=== PATIENT | male | born 1940 | race Two or more races ===

== ENCOUNTER 2017-01-27 12:22 | Inpatient (IN) | payer MEDICARE, MEDICAID ==
[~2017-01-27] VITALS: Ht 165.1 cm; Wt 66.2 kg
[2017-01-27] MEDS ORDERED: ALBUTEROL FS 2.5 MG/3 ML VIAL.NEB ONE ×2 (12:24→12:53)
[2017-01-27] MEDS ORDERED: IPRATROPIUM NEB FS 0.5 MG/2.5 ML AMPUL.NEB ONE (12:24)
[2017-01-27] MEDS ORDERED: methylPREDNISolone SOD SUCC 125 MG/2ML VIAL ONE (12:30)
[2017-01-27] MEDS ORDERED: IPRATROPIUM NEB FS 0.5 MG/2.5 ML AMPUL.NEB NEB ONE (12:30)
[2017-01-27] MEDS ORDERED: ALBUTEROL FS 2.5 MG/3 ML VIAL.NEB NEB ONE (12:30)
[2017-01-27] MEDS ORDERED: methylPREDNISolone SOD SUCC 125 MG/2ML VIAL IV ONE (12:30)
[2017-01-27 12:36] LABS: BASOPHILS % (AUTO) 0.3 % (0.0-2.0); DIFF TOTAL % 100 %; EOSINOPHILS # (AUTO) 0.4 /CMM (0.0-0.7); EOSINOPHILS % (AUTO) 8.2 % (0.0-6.0); HEMATOCRIT 35 % (39-51); HEMOGLOBIN 12.3 g/dL (13.5-17.5); LYMPHOCYTES # (AUTO) 1.3 /CMM (0.8-4.8); LYMPHOCYTES % (AUTO) 24.4 % (20.0-44.0); MEAN CORPUSCULAR HEMOGLOBIN 33 PG (26.0-33.0); MEAN CORPUSCULAR HGB CONC 35 g/dl (31.0-36.0); MEAN CORPUSCULAR VOLUME 96 fL (80-96); MONOCYTES # (AUTO) 0.6 /CMM (0.1-1.30); MONOCYTES % (AUTO) 11.7 % (2.0-12.0); NEUTROPHILS # (AUTO) 3.1 /CMM (1.8-8.9); NEUTROPHILS % (AUTO) 55.4 % (43.0-81.0); PLATELET COUNT (AUTO) 170 /CMM (150-450); RED BLOOD CELL COUNT(AUTO) 3.69 MIL/uL (4.5-6.0); WHITE BLOOD COUNT (AUTO) 5.4 K/uL (4.3-11.0)
[2017-01-27 12:43] LABS: CALCIUM, SERUM 8.4 mg/dL (8.5-10.1); CREATININE 1.1 mg/dL (0.6-1.3); POTASSIUM 4.4 mmol/L (3.5-5.1)
[2017-01-27 12:50] LABS: TROPONIN I 0.035 ng/mL (0.00-0.056)
[2017-01-27] MEDS ORDERED: AMLO5TAB4 PO (12:54)
[2017-01-27] MEDS ORDERED: RANO500T3 PO (12:54)
[2017-01-27] MEDS ORDERED: SITA1TAB6 PO ×2 (12:54→14:18)
[2017-01-27] MEDS ORDERED: ATOR40TA PO (12:54)
[2017-01-27] MEDS ORDERED: ALBU18HF2 IH (12:54)
[2017-01-27] MEDS ORDERED: CLOP75TA2 PO (12:54)
[2017-01-27] MEDS ORDERED: MEMA7CAP PO (12:54)
[2017-01-27] MEDS ORDERED: NEBI5TAB8 PO (12:54)
[2017-01-27] MEDS ORDERED: TAMS-12 PO (12:54)
[2017-01-27] MEDS ORDERED: ALBUTEROL FS 2.5 MG/3 ML VIAL.NEB CONTNEB ONE (13:00)
[2017-01-27] MEDS ORDERED: OSELTAMIVIR PHOSPHATE 75 MG CAPSULE PO SCH (14:00)
[2017-01-27] MEDS ORDERED: CEFTRIAXONE 1GM BAG (ER ONLY) 1 GM/50 ML PIGGYBACK IV ONE (14:00)
[2017-01-27] MEDS ORDERED: OSELTAMIVIR PHOSPHATE 75 MG CAPSULE ONE (14:04)
[2017-01-27] MEDS ORDERED: CEFTRIAXONE 1GM BAG (ER ONLY) 50 ML IV ONE (14:04)
[2017-01-27] MEDS ORDERED: IV SET PRIMARY PUMP SET 1 EA INFUS.SET MC ONE ×2 (14:05→18:37)
[2017-01-27] MEDS ORDERED: METR-105 PO (14:18)
[2017-01-27] MEDS ORDERED: ESOM40CA PO (14:18)
[2017-01-27] MEDS ORDERED: AMOX500C2 PO (14:18)
[2017-01-27 14:50] LABS: EOSINOPHILS % (MANUAL) 9 % (0-4); LYMPHOCYTES % (MANUAL) 26 % (16-48)
[2017-01-27 14:52] LABS: PLATELET ESTIMATE ADEQUATE
[2017-01-27 16:00] VITALS: BP 113/66
[2017-01-27 17:22] VITALS: BP 142/75
[2017-01-27] MEDS ORDERED: CEFTRIAXONE 1 G in IV D5W 50 ML IV SCH (18:00)
[2017-01-27] MEDS ORDERED: ONDANSETRON HCL/PF 4 MG/2 ML VIAL IVP PRN (18:30)
[2017-01-27] MEDS ORDERED: ZOLPIDEM TARTRATE 5 MG TABLET PO PRN (18:30)
[2017-01-27] MEDS ORDERED: Z GUARD REMEDY 2 OZ OINT TP PRN (18:30)
[2017-01-27] MEDS ORDERED: HYDROCODONE/APAP 5/325MG 1 EACH TABLET PO PRN (18:30)
[2017-01-27] MEDS ORDERED: MAG HYDROX/AL HYDROX/SIMETH 30 ML UDC PO PRN (18:30)
[2017-01-27] MEDS ORDERED: ACETAMINOPHEN 325 MG TABLET PO PRN (18:30)
[2017-01-27] MEDS ORDERED: MAGNESIUM HYDROXIDE 30 ML UDC PO PRN (18:30)
[2017-01-27] MEDS ORDERED: AZITHROMYCIN 250 MG TABLET PO ONE (19:00)
[2017-01-27] MEDS: ALBUTEROL FS 2.5 MG/3 ML VIAL.NEB NEB SCH ×2 (19:28→23:31)
[2017-01-27] MEDS: IPRATROPIUM NEB FS 0.5 MG/2.5 ML AMPUL.NEB NEB SCH ×2 (19:28→23:31)
[2017-01-27 20:00] VITALS: BP 119/70
[2017-01-27 22:00] VITALS: BP 119/70
[2017-01-27] MEDS ORDERED: methylPREDNISolone SOD SUCC 125 MG/2ML VIAL IV SCH (22:00)
[2017-01-28] VITALS (9 sets, daily range): BP systolic 108–122; BP diastolic 61–69
[2017-01-28] MEDS: ALBUTEROL FS 2.5 MG/3 ML VIAL.NEB NEB SCH ×6 (02:49→23:13)
[2017-01-28] MEDS: IPRATROPIUM NEB FS 0.5 MG/2.5 ML AMPUL.NEB NEB SCH ×6 (02:49→23:13)
[2017-01-28 07:29] LABS: BASOPHILS % (AUTO) 0.1 % (0.0-2.0); DIFF TOTAL % 100 %; HEMATOCRIT 33 % (39-51); HEMOGLOBIN 11.3 g/dL (13.5-17.5); LYMPHOCYTES # (AUTO) 0.7 /CMM (0.8-4.8); LYMPHOCYTES % (AUTO) 8.9 % (20.0-44.0); MEAN CORPUSCULAR HEMOGLOBIN 33 PG (26.0-33.0); MEAN CORPUSCULAR HGB CONC 34 g/dl (31.0-36.0); MEAN CORPUSCULAR VOLUME 95 fL (80-96); MONOCYTES # (AUTO) 0.2 /CMM (0.1-1.30); MONOCYTES % (AUTO) 2.8 % (2.0-12.0); NEUTROPHILS # (AUTO) 6.7 /CMM (1.8-8.9); NEUTROPHILS % (AUTO) 88.2 % (43.0-81.0); PLATELET COUNT (AUTO) 182 /CMM (150-450); RED BLOOD CELL COUNT(AUTO) 3.47 MIL/uL (4.5-6.0); WHITE BLOOD COUNT (AUTO) 7.7 K/uL (4.3-11.0)
[2017-01-28 07:40] LABS: CALCIUM, SERUM 8.4 mg/dL (8.5-10.1); CREATININE 1.2 mg/dL (0.6-1.3); PHOSPHORUS 4.2 mg/dL (2.5-4.9); POTASSIUM 4.5 mmol/L (3.5-5.1)
[2017-01-28] MEDS ORDERED: Medication Not On Formulary EA (Sitagliptin Phos/Metformin Hcl (Janumet 50-1,000 Mg Tabl PO SCH ×2 (09:00→18:00)
[2017-01-28] MEDS ORDERED: Medication Not On Formulary EA (Memantine HCl (Namenda Xr) 7 MG) PO SCH (09:00)
[2017-01-28] MEDS ORDERED: Medication Not On Formulary EA (Esomeprazole Mag Trihydrate (Nexium) 40 MG) PO SCH (09:00)
[2017-01-28] MEDS: methylPREDNISolone SOD SUCC 125 MG/2ML VIAL IV SCH (09:27)
[2017-01-28] MEDS: PANTOPRAZOLE 40 MG TABLET.DR PO SCH (09:27)
[2017-01-28] MEDS: METFORMIN 500 MG TABLET PO SCH (09:28)
[2017-01-28] MEDS: SITAGLIPTIN PHOSPHATE 50 MG TABLET PO SCH (09:28)
[2017-01-28] MEDS: ATORVASTATIN 40 MG TABLET PO SCH (09:28)
[2017-01-28] MEDS: MEMANTINE HCL 5 MG TABLET PO SCH (09:28)
[2017-01-28] MEDS: CLOPIDOGREL BISULFATE 75 MG TABLET PO SCH (09:29)
[2017-01-28] MEDS: TAMSULOSIN 0.4 MG CAP.SR.24H PO SCH (09:29)
[2017-01-28] MEDS: AMLODIPINE BESYLATE 5 MG TABLET PO SCH (09:29)
[2017-01-28] MEDS ORDERED: SECONDARY IV SET 1 EA INFUS.SET MC ONE (10:44)
[2017-01-28] MEDS ORDERED: IV SET PRIMARY PUMP SET 1 EA INFUS.SET MC ONE (10:44)
[2017-01-28] MEDS: Magnesium 1GM/D5W 100ML PREMIX 100 ML IV SCH ×2 (10:49→11:53)
[2017-01-28] MEDS ORDERED: INSULIN REGULAR, HUMAN 100 UNIT/ML 3 ML VIAL SQ PRN (11:30)
[2017-01-28] MEDS ORDERED: DEXTROSE 50%-WATER 50 ML DISP.SYRIN IV PRN (11:30)
[2017-01-28] MEDS ORDERED: *INSULIN REGULAR(HUMULIN R)HUM 100 UNIT/ML VIAL SQ PRN (11:30)
[2017-01-28] MEDS: BLOOD SUGAR DIAGNOSTIC 1 EACH STRIP VI SCH ×3 (11:53→23:12)
[2017-01-28] MEDS ORDERED: METFORMIN 500 MG TABLET PO SCH (18:00)
[2017-01-28] MEDS: AZITHROMYCIN 250 MG TABLET PO SCH (18:09)
[2017-01-28] MEDS ORDERED: SITAGLIPTIN PHOSPHATE 50 MG TABLET PO SCH (18:44)
[2017-01-29] MEDS: ALBUTEROL FS 2.5 MG/3 ML VIAL.NEB NEB SCH ×3 (03:02→10:58)
[2017-01-29] MEDS: IPRATROPIUM NEB FS 0.5 MG/2.5 ML AMPUL.NEB NEB SCH ×3 (03:02→10:58)
[2017-01-29] MEDS: BLOOD SUGAR DIAGNOSTIC 1 EACH STRIP VI SCH ×2 (07:08→12:00)
[2017-01-29 07:43] LABS: CALCIUM, SERUM 8.9 mg/dL (8.5-10.1); CREATININE 1.2 mg/dL (0.6-1.3); POTASSIUM 4.9 mmol/L (3.5-5.1)
[2017-01-29 08:00] VITALS: BP 103/61
[2017-01-29] MEDS: methylPREDNISolone SOD SUCC 125 MG/2ML VIAL IV SCH (08:08)
[2017-01-29] MEDS: METFORMIN 500 MG TABLET PO SCH (08:08)
[2017-01-29] MEDS: ATORVASTATIN 40 MG TABLET PO SCH (08:09)
[2017-01-29] MEDS: TAMSULOSIN 0.4 MG CAP.SR.24H PO SCH (08:09)
[2017-01-29] MEDS: MEMANTINE HCL 5 MG TABLET PO SCH (08:09)
[2017-01-29] MEDS: SITAGLIPTIN PHOSPHATE 50 MG TABLET PO SCH (08:09)
[2017-01-29] MEDS: PANTOPRAZOLE 40 MG TABLET.DR PO SCH (08:09)
[2017-01-29] MEDS: CLOPIDOGREL BISULFATE 75 MG TABLET PO SCH (08:09)
[2017-01-29 08:10] VITALS: BP 103/61
[2017-01-29] MEDS: AMLODIPINE BESYLATE 5 MG TABLET PO SCH (08:10)
[2017-01-29] MEDS ORDERED: IPRA0.2S49 IH (09:43)
[2017-01-29] MEDS ORDERED: PRED20TA PO (09:43)
[2017-01-29] MEDS ORDERED: ALBU2.5V38 IH (09:43)
[2017-01-29] MEDS ORDERED: AZIT250T PO (09:49)
[2017-01-29] MEDS: AZITHROMYCIN 250 MG TABLET PO SCH (10:30)
== END 2017-01-29 12:05 | disposition home or self-care (01) | DRG 191 ==
LOC: ER 12:25 → TELE 13:11 → EDBD 13:11 → MED 01-28 08:55
PROVIDERS: ADMIT Family Medicine; ATTEND Family Medicine
DX: J44.1 Chronic obstructive pulmonary disease with (acute) exacerbation (principal); I50.32 Chronic diastolic (congestive) heart failure; J44.0 Chronic obstructive pulmonary disease with (acute) lower respiratory infection; I25.10 Atherosclerotic heart disease of native coronary artery without angina pectoris; Z95.1 Presence of aortocoronary bypass graft; F03.90 Unspecified dementia, unspecified severity, without behavioral disturbance, psychotic disturbance, mood disturbance, and anxiety; E78.5 Hyperlipidemia, unspecified; N40.0 Benign prostatic hyperplasia without lower urinary tract symptoms; K21.9 Gastro-esophageal reflux disease without esophagitis; K57.90 Diverticulosis of intestine, part unspecified, without perforation or abscess without bleeding; M19.90 Unspecified osteoarthritis, unspecified site; E11.9 Type 2 diabetes mellitus without complications; F17.210 Nicotine dependence, cigarettes, uncomplicated; L40.9 Psoriasis, unspecified
CPT/HCPCS: 36415; 70220-TC; 71010-TC; 80048-TC; 80061-TC; 82962-TC; 83735-TC; 83880; 84100-TC; 84484-TC; 85025-TC; 87040-TC; 87081-TC; 87400; 94799-TC; A4606; J0696; J1815; J2930; J3475; J7060; Z7610

== ENCOUNTER 2019-03-04 12:14 | Inpatient (IN) | payer MEDICARE, OTHER ==
[~2019-03-04] VITALS: Ht 162.6 cm; Wt 71.2 kg
[~2019-03-04 12:14] MED LIST: ALBU18HF2 IH; ALBU2.5V38 IH; AMLO5TAB4 PO; AMOX500C2 PO; ATOR40TA PO; AZIT250T PO; CLOP75TA15 PO; ESOM40CA PO; IPRA0.2S49 IH; MEMA7CAP PO; METR-147 PO; NEBI5TAB8 PO; PRED20TA PO; RANO500T3 PO; SITA1TAB6 PO; TAMS-12 PO
--- NOTE | 2019-03-04 12:15 | NUR ---
SEEN AND EXAMINED BY DR. SANTOS.
--- NOTE | 2019-03-04 12:18 | NUR ---
RT AT BEDSIDE FOR BREATHING TREAMENT.
--- NOTE | 2019-03-04 12:19 | NUR ---
PT BIBRA88 FROM HOME FOR WORSENING SOB X 3 DAYS, PT IS AAOX3, NOTED RESPIRATORY DISTRESS, V/S STABLE, HOOKED TO MONITOR, KEPT RESTED AND COMFORTABLE. WILL CONTINUE TO MONITOR.
[2019-03-04] MEDS ORDERED: ALBUTEROL FS 2.5 MG/3 ML VIAL.NEB ONE (12:20)
--- NOTE | 2019-03-04 12:20 | NUR ---
LABS DRAWNED AND SENT TO LAB. AWAITING RESULTS.
[2019-03-04] MEDS ORDERED: IPRATROPIUM NEB FS 0.5 MG/2.5 ML AMPUL.NEB ONE (12:21)
[2019-03-04] MEDS ORDERED: CEFTRIAXONE 1GM BAG (ER ONLY) 50 ML IV ONE (12:27)
[2019-03-04] MEDS ORDERED: methylPREDNISolone SOD SUCC 125 MG/2ML VIAL ONE (12:27)
[2019-03-04 12:29] LABS: EOSINOPHILS % (AUTO) 1.4 % (0.0-6.0); HEMATOCRIT 32 % (39-51); HEMOGLOBIN 10.8 g/dL (13.5-17.5); LYMPHOCYTES # (AUTO) 1.3 /CMM (0.8-4.8); MEAN CORPUSCULAR HGB CONC 34 g/dl (31.0-36.0); MEAN CORPUSCULAR VOLUME 100 fL (80-96); MONOCYTES # (AUTO) 0.3 /CMM (0.1-1.30); MONOCYTES % (AUTO) 6.9 % (2.0-12.0); NEUTROPHILS # (AUTO) 3.2 /CMM (1.8-8.9); NEUTROPHILS % (AUTO) 64.7 % (43.0-81.0); PLATELET COUNT (AUTO) 136 /CMM (150-450); RED BLOOD CELL COUNT(AUTO) 3.16 MIL/uL (4.5-6.0); WHITE BLOOD COUNT (AUTO) 4.9 K/uL (4.3-11.0)
[2019-03-04] MEDS ORDERED: ALBUTEROL FS 2.5 MG/3 ML VIAL.NEB CONTNEB ONE (12:30)
[2019-03-04] MEDS ORDERED: methylPREDNISolone SOD SUCC 125 MG/2ML VIAL IV ONE (12:30)
[2019-03-04] MEDS ORDERED: IPRATROPIUM NEB FS 0.5 MG/2.5 ML AMPUL.NEB NEB ONE ×2 (12:30→13:30)
[2019-03-04] MEDS ORDERED: CEFTRIAXONE 1GM BAG (ER ONLY) 1 GM/50 ML PIGGYBACK IV ONE (12:30)
--- NOTE | 2019-03-04 12:30 | NUR ---
LOOM INSPECTOR AT BEDSIDE FOR XRAY.
[2019-03-04 12:38] LABS: CALCIUM, SERUM 8.5 mg/dL (8.5-10.1); CARBON DIOXIDE 22 mmol/L (21-32); CHLORIDE 105 mmol/L (98-107); CREATININE 1.5 mg/dL (0.6-1.3); GLUCOSE 172 mg/dL (74-106); POTASSIUM 4.4 mmol/L (3.5-5.1); SODIUM SERUM 137 mmol/L (136-145); UREA NITROGEN, BLOOD 30 mg/dL (7-18)
[2019-03-04] MEDS ORDERED: CHOL200059 PO (12:44)
[2019-03-04] MEDS ORDERED: UMEC62.5 IH (12:44)
[2019-03-04] MEDS ORDERED: FLUT1BLS IH (12:44)
[2019-03-04] MEDS ORDERED: SACU1TAB4 PO (12:44)
[2019-03-04] MEDS ORDERED: MEMA14CA PO (12:44)
[2019-03-04] MEDS ORDERED: CYAN1TAB58 PO (12:47)
[2019-03-04 12:49] LABS: ALANINE AMINOTRANSFERASE 31 U/L (12-78); ALBUMIN 3.6 g/dL (3.4-5.0); ALKALINE PHOSPHATASE 65 U/L (46-116); ASPARTATE AMINOTRANSFERASE 16 U/L (15-37); B-TYPE NATRIURETIC PEPTIDE 6411 PG/ML (0-125); BILIRUBIN,DIRECT 0.1 mg/dL (0.0-0.2); BILIRUBIN,TOTAL 0.4 mg/dL (0.2-1.0); TOTAL PROTEIN, SERUM 7.2 g/dL (6.4-8.2)
[2019-03-04] MEDS ORDERED: FUROSEMIDE 20 MG/2 ML VIAL IV ONE (13:00)
[2019-03-04] MEDS ORDERED: FUROSEMIDE 20 MG/2 ML VIAL ONE (13:06)
[2019-03-04] MEDS ORDERED: ZOLPIDEM TARTRATE 5 MG TABLET PO PRN (13:30)
[2019-03-04] MEDS ORDERED: MAGNESIUM HYDROXIDE 30 ML UDC PO PRN (13:30)
[2019-03-04] MEDS ORDERED: HYDROCODONE/APAP 5/325MG 1 EACH TABLET PO PRN (13:30)
[2019-03-04] MEDS ORDERED: ONDANSETRON HCL/PF 4 MG/2 ML VIAL IVP PRN (13:30)
[2019-03-04] MEDS ORDERED: MAG HYDROX/AL HYDROX/SIMETH 30 ML UDC PO PRN (13:30)
[2019-03-04] MEDS ORDERED: Z GUARD REMEDY 2 OZ OINT TP PRN (13:30)
[2019-03-04] MEDS ORDERED: ACETAMINOPHEN 325 MG TABLET PO PRN (13:30)
--- NOTE | 2019-03-04 14:15 | NUR ---
REPORT GIVEN TO SU GARCIA FOR FRED.
--- NOTE | 2019-03-04 15:59 | NUR ---
AUTHOR'S AGENT ADMITTING NOTES ADMITTED A 78 Y/O MALE TO UNIT AT 1445 VIA [facility] [employer]. PT A/O X4, JORDANIAN SPEAKING WITH LITTLE BOTSWANAN. PT IS AMBULATORY WITH DIAGNOSIS OF ACUTE COPD EXACERBATION. PATIENT AND ORIENTED TO UNIT AND ROOM. PT NOTED WITH SOB ON EXERTION AND WAS PLACED ON 02 VIA N/C @ 1-2 LPM WITH RELIEF. PT WITH INTACT SKIN, ABDOMEN SOFT, NON-TENDER AND NON- DISTENDED WITH + BOWEL SOUNDS ON FOUR QUADRANTS. PT PLACED ON TELEMONITORING WITH READING SHOWING SR WITH HR ON THE 80'S, NO C/O CARDIAC DISTRESS VOICED. IV ACCESS G # 20 NOTED TO LAC, INTACT AND PATENT. BED PLACED ON LOW LOCKED POSITION WITH SR UP X2. CALL LIGHT IN REACH. MD REYES AWARE OF ADMISSION. WILL CONTINUE TO MONITOR PT ACCORDINGLY.
[2019-03-04 16:00] VITALS: BP 110/62
[2019-03-04] MEDS ORDERED: ALBUTEROL FS 2.5 MG/0.5 ML VIAL.NEB NEB SCH (17:00)
[2019-03-04] MEDS: IPRATROPIUM NEB FS 0.5 MG/2.5 ML AMPUL.NEB NEB SCH ×3 (17:08→23:39)
--- NOTE | 2019-03-04 18:06 | NUR ---
RN NOTES SPECIMEN COLLECTED TO RIGHT NARE FOR MRSA SURVEILLANCE TEST. SPUTUM SPECIMEN FOR CX OBTAINED. CALLED LABORATORY TO PICK-UP SPECIMENS FROM [facility].
--- NOTE | 2019-03-04 18:49 | NUR ---
CURRICULUM ADVISORY TEACHER CLOSING NOTES PATIENT AWAKE IN BED WITH FAMILY AT BEDSIDE. A/O X4, SAME ABLE TO MAKE NEEDS KNOWN. ON 02 VIA N/C @ 2LPM, TOLERATING WELL WITH NO SOB NOTED. PT IS AMBULATORY. TELEMONITORING SHOWS SR WITH HR ON THE 80'2, PT WITH NO C/O CARDIAC DISTRESS VOICED. IV ACCESS INTACT TO LAC AND PATENT, IV ATB LEVAQUIN 500MG IVPB TO BE STARTED, PHARMACY CALLED AND TO DELIVER MED. ALL NEEDS AND CARE ATTENDED WELL. BED IN LOW LOCKED POSITION WITH SR UP X2. WILL ENDORSE TO HOSPICE TEAM LEAD NURSE FOR FRED
[2019-03-04] MEDS: LEVOFLOXACIN 500 MG /D5W 100ML 500 MG in PREMIX 1 EA IV SCH (19:16)
--- NOTE | 2019-03-04 19:45 | NUR ---
REGIONAL SALES COORDINATOR OPENING NOTES RECEIVED PATIENT IN BED AWAKE, ALERT AND ORIENTED X4, VERBALLY RESPONSIVE, ABLE TO MAKE NEEDS KNOWN. SCOTTISH SPEAKER BUT CAN SPEAK AND UNDERSTAND VERY LITTLE SAMI. BREATHING EVEN AND UNLABORED. NO SOB NOTED. ON 2LPM OXYGEN VIA NC. TOLERATING WELL. IV ON LEFT AC G#20 INTACT AND PATENT. SKIN DRY AND WARM TO TOUCH. AFEBRILE. ALL OTHER NEEDS ATTENDED TO. SAFETY MEASURES IN PLACE. CALL LIGHT WITHIN REACH. WILL CONTINUE TO MONITOR.
[2019-03-04 20:00] VITALS: BP 130/69
[2019-03-04] MEDS: methylPREDNISolone SOD SUCC 40 MG/ML VIAL IV SCH (20:22)
[2019-03-04] MEDS: ALBUTEROL FS 2.5 MG/0.5 ML VIAL.NEB NEB SCH (23:39)
[2019-03-05] VITALS: BP 129/79
--- NOTE | 2019-03-05 02:26 | NUR ---
PROVIDER ENROLLMENT SPECIALIST NOTES PATIENT SLEEPING, EASILY AROUSABLE. NO DISTRESS. BREATHING EVEN AND UNLABORED. REFUSING OXYGEN. SP02 WNL. NO COMPLAINTS OF PAIN OR DISCOMFORT. ALL NEEDS MET. WILL CONTINUE TO MONITOR.
[2019-03-05] MEDS: IPRATROPIUM NEB FS 0.5 MG/2.5 ML AMPUL.NEB NEB SCH ×6 (03:43→23:05)
[2019-03-05] MEDS: ALBUTEROL FS 2.5 MG/0.5 ML VIAL.NEB NEB SCH ×6 (03:43→23:05)
[2019-03-05 04:00] VITALS: BP 125/74
[2019-03-05] MEDS: methylPREDNISolone SOD SUCC 40 MG/ML VIAL IV SCH ×3 (05:09→20:25)
--- NOTE | 2019-03-05 06:28 | NUR ---
KEYBOARDING TEACHER CLOSING NOTES PATIENT RESTING IN BED. NO ACUTE CHANGES THROUGHOUT SHIFT.. BREATHING EVEN AND UNLABORED. NO SOB NOTED. TOLERATING ROOM AIR. IV ON LEFT AC G#20 INTACT AND PATENT. SKIN DRY AND WARM TO TOUCH. AFEBRILE. ALL OTHER NEEDS ATTENDED TO. SAFETY MEASURES IN PLACE. CALL LIGHT WITHIN REACH. WILL ENDORSE TO ONCOMING NURSE FOR FRED. Addendum: 03/05/19 at 0630 by JUAN HURT RN SR 95 WITH BBB ON TELE MONITOR.
[2019-03-05 06:41] LABS: HEMATOCRIT 31 % (39-51); HEMOGLOBIN 10.8 g/dL (13.5-17.5); LYMPHOCYTES # (AUTO) 0.3 /CMM (0.8-4.8); LYMPHOCYTES % (AUTO) 5.6 % (20.0-44.0); MEAN CORPUSCULAR HGB CONC 35 g/dl (31.0-36.0); MEAN CORPUSCULAR VOLUME 99 fL (80-96); MONOCYTES # (AUTO) 0.2 /CMM (0.1-1.30); MONOCYTES % (AUTO) 3.2 % (2.0-12.0); NEUTROPHILS # (AUTO) 5.1 /CMM (1.8-8.9); NEUTROPHILS % (AUTO) 91.2 % (43.0-81.0); PLATELET COUNT (AUTO) 149 /CMM (150-450); RED BLOOD CELL COUNT(AUTO) 3.17 MIL/uL (4.5-6.0); WHITE BLOOD COUNT (AUTO) 5.6 K/uL (4.3-11.0)
[2019-03-05 07:04] LABS: CALCIUM, SERUM 8.8 mg/dL (8.5-10.1); CARBON DIOXIDE 20 mmol/L (21-32); CHLORIDE 104 mmol/L (98-107); CREATININE 1.4 mg/dL (0.6-1.3); GLUCOSE 227 mg/dL (74-106); MAGNESIUM 1.9 mg/dL (1.8-2.4); PHOSPHORUS 3.6 mg/dL (2.5-4.9); SODIUM SERUM 137 mmol/L (136-145); UREA NITROGEN, BLOOD 34 mg/dL (7-18)
[2019-03-05 07:14] LABS: CHOLESTEROL 135 mg/dL (<200); HDL CHOLESTEROL 43 mg/dL (40-60); LDL 85 mg/dL (0-99); THYROID STIMULATING HORMONE 0.179 uIU/mL (0.358-3.74); TRIGLYCERIDES 48 mg/dL (30-150)
[2019-03-05 07:32] LABS: IRON, SERUM 17 ug/dl (50-175); TOTAL IRON BINDING CAPACITY 247 ug/dl (250-450)
[2019-03-05 08:00] VITALS: BP 135/82
[2019-03-05] MEDS: PANTOPRAZOLE 40 MG TABLET.DR PO SCH (08:14)
[2019-03-05 16:00] VITALS: BP 143/80
[2019-03-05] MEDS: LEVOFLOXACIN 500 MG /D5W 100ML 500 MG in PREMIX 1 EA IV SCH (17:50)
--- NOTE | 2019-03-05 18:51 | NUR ---
PATIENT RESTING IN BED. NO ACUTE CHANGES THROUGHOUT SHIFT. BREATHING EVEN AND UNLABORED, ON 2L O2 VIA NC.IV ON LEFT AC G#20 INTACT AND PATENT. AFEBRILE. ALL NEEDS ATTENDED TO. SAFETY MEASURES IN PLACE. CALL LIGHT WITHIN REACH.WILL ENDORSE TO NEXT SHIFT
--- NOTE | 2019-03-05 19:00 | NUR ---
MS RN OPENING NOTES Received patient sitting up in bed, alert, oriented x 4. Patient has O2 at 2LPM via NC. IV access in RFA g#22 infusing levaquin at this time. No complaints of pain or discomfort. Patient stable as endorsed by the AM RN. Call light within reach. Bed in low, locked position. Will continue to monitor accordingly
[2019-03-05 20:00] VITALS: BP 121/86
[2019-03-05] MEDS: HEPARIN SODIUM, PORCINE 5000 UNITS/1 ML VIAL SQ SCH (20:25)
--- NOTE | 2019-03-06 01:50 | NUR ---
RN NOTES Patient still awake, reading a book. Patient said he has a hard time going to sleep. Offered sleeping tablet but patient refused
[2019-03-06] MEDS: IPRATROPIUM NEB FS 0.5 MG/2.5 ML AMPUL.NEB NEB SCH ×6 (03:30→22:58)
[2019-03-06] MEDS: ALBUTEROL FS 2.5 MG/0.5 ML VIAL.NEB NEB SCH ×6 (03:30→22:58)
[2019-03-06] MEDS: methylPREDNISolone SOD SUCC 40 MG/ML VIAL IV SCH ×2 (04:25→12:30)
[2019-03-06 05:44] LABS: BASOPHILS % (AUTO) 0.1 % (0.0-2.0); HEMATOCRIT 32 % (39-51); HEMOGLOBIN 11.3 g/dL (13.5-17.5); LYMPHOCYTES # (AUTO) 0.2 /CMM (0.8-4.8); LYMPHOCYTES % (AUTO) 2.3 % (20.0-44.0); MEAN CORPUSCULAR HGB CONC 35 g/dl (31.0-36.0); MEAN CORPUSCULAR VOLUME 99 fL (80-96); MONOCYTES # (AUTO) 0.4 /CMM (0.1-1.30); MONOCYTES % (AUTO) 3.6 % (2.0-12.0); NEUTROPHILS # (AUTO) 9.3 /CMM (1.8-8.9); PLATELET COUNT (AUTO) 137 /CMM (150-450); RED BLOOD CELL COUNT(AUTO) 3.27 MIL/uL (4.5-6.0); WHITE BLOOD COUNT (AUTO) 9.9 K/uL (4.3-11.0)
[2019-03-06 05:57] LABS: CARBON DIOXIDE 22 mmol/L (21-32); CHLORIDE 105 mmol/L (98-107); CREATININE 1.5 mg/dL (0.6-1.3); GLUCOSE 238 mg/dL (74-106); POTASSIUM 4.7 mmol/L (3.5-5.1); SODIUM SERUM 140 mmol/L (136-145); UREA NITROGEN, BLOOD 48 mg/dL (7-18)
--- NOTE | 2019-03-06 07:09 | NUR ---
MS RN CLOSING NOTES Patient sitting up in bed, alert, oriented x 4. Breathing even and unlabored. Not in any distress. On supplemental O2 at 2LPM via NC. No complaints. No acute changes overnight. Safety measures in place. Will endorse FRED to oncoming RN
[2019-03-06] MEDS: PANTOPRAZOLE 40 MG TABLET.DR PO SCH (07:39)
--- NOTE | 2019-03-06 07:40 | NUR ---
MS RN OPENING NOTES RECEIVE PT IN BED, AWAKE, A/O X4. ST LUCIAN SPEAKING AND ABLE TO UNDERSTAND AND SPEAK A LITTLE BIT OF KYRGYZ. PT SUPPOSED TO BE ON 2L O2 VIA NC. REFUSED TO WEAR IT AT THIS MOMENT, TOLERATING AT 93-94% O2 SATURATION. PT DENIES PAIN. PT ALSO DENIES ANY QUESTIONS OR CONCERNS AT THIS MOMENT. PIV TO RFA G20 SL, FLUSHED WITH NS, INTACT AND OPERATIONAL. HOB ELEVATED. KEPT CALL LIGHT AND FLUID WITHIN REACH. WILL CONTINUE TO MONITOR.
[2019-03-06 08:00] VITALS: BP 127/71
[2019-03-06] MEDS: HEPARIN SODIUM, PORCINE 5000 UNITS/1 ML VIAL SQ SCH ×2 (08:42→21:11)
[2019-03-06] MEDS ORDERED: DEXTROSE 50%-WATER 50 ML DISP.SYRIN IV PRN (12:30)
[2019-03-06] MEDS: ASPIRIN 81 MG TAB.CHEW PO SCH (13:57)
[2019-03-06] MEDS: FUROSEMIDE 40 MG/4 ML VIAL IV SCH ×3 (13:57→21:10)
[2019-03-06] MEDS: SOD FERRIC GLUC 125 MG in IV NS 0.9% 100 ML IV SCH (14:22)
[2019-03-06 16:00] VITALS: BP 127/75
[2019-03-06] MEDS: BLOOD SUGAR DIAGNOSTIC 1 EACH STRIP IN SCH ×2 (17:24→21:21)
[2019-03-06] MEDS: INSULIN REGULAR, HUMAN 100 UNIT/ML 3 ML VIAL SQ PRN ×2 (17:26→21:23)
[2019-03-06] MEDS: LEVOFLOXACIN 500 MG /D5W 100ML 500 MG in PREMIX 1 EA IV SCH (17:37)
--- NOTE | 2019-03-06 19:16 | NUR ---
MS RN CLOSING NOTES PT REMAINS IN BED, AWAKE, A/O X4. ON SUPPLEMENTARY O2 1-2LPM, WITH NO ACUTE RESPIRATORY DISTRESS NOTED. PT DENIES PAIN. PIV TO RFA G20 SL, FLUSHED WITH NS, INTACT AND OPERATIONAL. HOB ELEVATED. KEPT CALL LIGHT AND FLUID WITHIN REACH. PT'S BED KEPT IN LOWEST, LOCKED POSITION WITH SR X2. ENDORSED TO SERGING MACHINE OPERATOR NURSE FOR FRED.
[2019-03-06 20:00] VITALS: BP 127/73
--- NOTE | 2019-03-06 20:20 | NUR ---
RN MS OPENING NOTES RECEIVED PATIENT IN BED AWAKE, ALERT AND ORIENTED X4, VERBALLY RESPONSIVE, ABLE TO MAKE NEEDS KNOWN. BREATHING EVEN AND UNLABORED. NO SOB NOTED. ON 2LPM OXYGEN VIA NC. TOLERATING WELL. NO COMPLAINTS OF PAIN OR DISCOMFORT. NO FACIAL GRIMACING. IV ON RIGHT FOREARM G#20 INTACT AND PATENT. SKIN DRY AND WARM TO TOUCH. AFEBRILE. ALL OTHER NEEDS ATTENDED TO. SAFETY MEASURES IN PLACE. CALL LIGHT WITHIN REACH. WILL CONTINUE TO MONITOR.
[2019-03-07] MEDS: IPRATROPIUM NEB FS 0.5 MG/2.5 ML AMPUL.NEB NEB SCH ×6 (03:40→23:33)
[2019-03-07] MEDS: ALBUTEROL FS 2.5 MG/0.5 ML VIAL.NEB NEB SCH ×6 (03:40→23:34)
[2019-03-07] MEDS: BLOOD SUGAR DIAGNOSTIC 1 EACH STRIP IN SCH ×4 (06:32→21:26)
[2019-03-07] MEDS: INSULIN REGULAR, HUMAN 100 UNIT/ML 3 ML VIAL SQ PRN ×4 (06:34→21:25)
[2019-03-07 06:41] LABS: HEMATOCRIT 35 % (39-51); LYMPHOCYTES # (AUTO) 0.4 /CMM (0.8-4.8); LYMPHOCYTES % (AUTO) 3.9 % (20.0-44.0); MEAN CORPUSCULAR HGB CONC 34 g/dl (31.0-36.0); MEAN CORPUSCULAR VOLUME 99 fL (80-96); MONOCYTES # (AUTO) 0.8 /CMM (0.1-1.30); MONOCYTES % (AUTO) 8.5 % (2.0-12.0); NEUTROPHILS # (AUTO) 8.5 /CMM (1.8-8.9); NEUTROPHILS % (AUTO) 87.6 % (43.0-81.0); PLATELET COUNT (AUTO) 164 /CMM (150-450); RED BLOOD CELL COUNT(AUTO) 3.55 MIL/uL (4.5-6.0); WHITE BLOOD COUNT (AUTO) 9.7 K/uL (4.3-11.0)
[2019-03-07 07:05] LABS: ALANINE AMINOTRANSFERASE 45 U/L (12-78); ALBUMIN 3.7 g/dL (3.4-5.0); ALKALINE PHOSPHATASE 56 U/L (46-116); ASPARTATE AMINOTRANSFERASE 33 U/L (15-37); BILIRUBIN,TOTAL 0.5 mg/dL (0.2-1.0); CARBON DIOXIDE 26 mmol/L (21-32); CHLORIDE 106 mmol/L (98-107); CREATININE 1.6 mg/dL (0.6-1.3); GLUCOSE 113 mg/dL (74-106); MAGNESIUM 2.2 mg/dL (1.8-2.4); PHOSPHORUS 2.8 mg/dL (2.5-4.9); SODIUM SERUM 143 mmol/L (136-145); TOTAL PROTEIN, SERUM 7.3 g/dL (6.4-8.2); UREA NITROGEN, BLOOD 62 mg/dL (7-18)
--- NOTE | 2019-03-07 07:06 | NUR ---
RN MS CLOSING NOTES PATIENT RESTING IN BED. NO ACUTE CHANGES THROUGHOUT SHIFT. BREATHING EVEN AND UNLABORED. NO SOB NOTED. ON 2LPM OXYGEN VIA NC. TOLERATING WELL. NO COMPLAINTS OF PAIN OR DISCOMFORT. NO FACIAL GRIMACING. IV ON RIGHT FOREARM G#20 INTACT AND PATENT. SKIN DRY AND WARM TO TOUCH. AFEBRILE. ALL OTHER NEEDS ATTENDED TO. SAFETY MEASURES IN PLACE. CALL LIGHT WITHIN REACH. WILL ENDORSE TO ONCOMING NURSE FOR FRED.
--- NOTE | 2019-03-07 07:30 | NUR ---
MS RN OPENING NOTES RECEIVE PT IN BED, AWAKE, A/O X4. NICARAGUAN SPEAKING AND ABLE TO UNDERSTAND AND SPEAK A LITTLE BIT OF COOK ISLANDER ON O2 AT 2LPM VIA NC, WITH NO ACUTE RESPIRATORY DISTRESS NOTED. OCCASIONAL COUGH NOTED WELL. PT ENCOURAGED TO SPIT OUT PHLEGM IF PRESENT. PT DENIES PAIN. PT ALSO DENIES ANY QUESTIONS OR CONCERNS AT THIS MOMENT. PIV TO RFA G20 SL, FLUSHED WITH NS, INTACT AND OPERATIONAL. HOB ELEVATED. KEPT CALL LIGHT WITHIN REACH. PT'S BED IN LOWEST,LOCKED POSITION WITH SR X2. WILL CONTINUE PLAN OF CARE.
--- NOTE | 2019-03-07 07:51 | NUR ---
MS RN NOTES RECEIVED CALL FROM LAB FOR TROPONIN RESULT OF 0.490, MD DR COYLE IN THE UNIT AND MADE AWARE. MD WILL SEE PT. WILL CONTINUE TO MONITOR.
[2019-03-07 08:00] VITALS: BP 105/64
[2019-03-07] MEDS: PANTOPRAZOLE 40 MG TABLET.DR PO SCH (08:27)
[2019-03-07] MEDS ORDERED: methylPREDNISolone SOD SUCC 40 MG/ML VIAL IV SCH (09:00)
[2019-03-07] MEDS: FUROSEMIDE 40 MG TABLET PO SCH (09:06)
[2019-03-07] MEDS: ASPIRIN 81 MG TAB.CHEW PO SCH (09:06)
[2019-03-07] MEDS: HEPARIN SODIUM, PORCINE 5000 UNITS/1 ML VIAL SQ SCH ×2 (09:09→21:11)
[2019-03-07] MEDS: predniSONE 10 MG TABLET PO SCH (13:56)
[2019-03-07] MEDS: SOD FERRIC GLUC 125 MG in IV NS 0.9% 100 ML IV SCH (13:56)
[2019-03-07 16:00] VITALS: BP 106/66
--- NOTE | 2019-03-07 19:17 | NUR ---
MS RN NOTES JUST COLLECTED STOOL FOR OB PER PRINCIPAL BIOSTATISTICIAN SHASHANK. WILL ENDORSE TO INCOMING NURSE.
--- NOTE | 2019-03-07 19:18 | NUR ---
MS RN CLOSING NOTES PT IN BED, AWAKE, A/O X4. KHMER SPEAKING AND ABLE TO UNDERSTAND AND SPEAK A LITTLE BIT OF ESTONIAN ON O2 AT 2LPM VIA NC, WITH NO ACUTE RESPIRATORY DISTRESS NOTED. PT DENIES PAIN. COLLECTED STOOL FOR OB PER ROLL FORMER SHASHANK, WILL ENDORSE TO INCOMING NURSE. PIV TO RFA G20 SL, FLUSHED WITH NS, INTACT AND OPERATIONAL. HOB ELEVATED. KEPT CALL LIGHT WITHIN REACH. PT'S BED IN LOWEST,LOCKED POSITION WITH SR X2. WILL ENDORSE TO DIRECTOR MULTIMEDIA NURSE FOR FRED.
[2019-03-07 20:00] VITALS: BP 124/74
--- NOTE | 2019-03-07 20:00 | NUR ---
RN NOTES RECEIVED PATIENT IN BED, ALERT AND ORIENTED X4, NO DISTRESS, RECEIVING BREATHING TREATMENT, DENIES ANY PAIN, INDEPENDENT WITH ADLS, CONTINENT OF BOWEL AND BLADDER, WILL CONTINUE TO MONITOR
[2019-03-07 22:00] VITALS: BP 124/74
[2019-03-08 02:01] LABS: OCCULT BLOOD STOOL NEGATIVE (NEGATIVE)
[2019-03-08] MEDS: ALBUTEROL FS 2.5 MG/0.5 ML VIAL.NEB NEB SCH ×3 (02:17→11:14)
[2019-03-08] MEDS: IPRATROPIUM NEB FS 0.5 MG/2.5 ML AMPUL.NEB NEB SCH ×3 (02:17→11:13)
--- NOTE | 2019-03-08 06:21 | NUR ---
RN NOTES PATIENT IS ALERT AND AWAKE, NO SOB, NO DISTRESS, COMPLIANT WITH TREATMENT AND MEDICATIONS, SLEPT FOR 6 HOURS, VOIDING WELL. FOLLOW UP WITH PULMONARY OUTPATIENT
[2019-03-08 06:22] LABS: BASOPHILS % (AUTO) 0.2 % (0.0-2.0); HEMATOCRIT 34 % (39-51); HEMOGLOBIN 11.8 g/dL (13.5-17.5); LYMPHOCYTES # (AUTO) 0.6 /CMM (0.8-4.8); LYMPHOCYTES % (AUTO) 6.9 % (20.0-44.0); MEAN CORPUSCULAR HGB CONC 34 g/dl (31.0-36.0); MEAN CORPUSCULAR VOLUME 98 fL (80-96); MONOCYTES # (AUTO) 0.9 /CMM (0.1-1.30); NEUTROPHILS # (AUTO) 7.1 /CMM (1.8-8.9); NEUTROPHILS % (AUTO) 82.9 % (43.0-81.0); PLATELET COUNT (AUTO) 181 /CMM (150-450); RED BLOOD CELL COUNT(AUTO) 3.51 MIL/uL (4.5-6.0); WHITE BLOOD COUNT (AUTO) 8.6 K/uL (4.3-11.0)
[2019-03-08] MEDS: BLOOD SUGAR DIAGNOSTIC 1 EACH STRIP IN SCH ×2 (06:33→11:10)
[2019-03-08] MEDS: INSULIN REGULAR, HUMAN 100 UNIT/ML 3 ML VIAL SQ PRN (06:33)
--- NOTE | 2019-03-08 06:56 | NUR ---
RN NOTES BG 124 MG/DL, NO INSULIN GIVEN
[2019-03-08 07:01] LABS: ALANINE AMINOTRANSFERASE 52 U/L (12-78); ALBUMIN 3.5 g/dL (3.4-5.0); ALKALINE PHOSPHATASE 56 U/L (46-116); ASPARTATE AMINOTRANSFERASE 31 U/L (15-37); BILIRUBIN,TOTAL 0.5 mg/dL (0.2-1.0); CARBON DIOXIDE 25 mmol/L (21-32); CHLORIDE 105 mmol/L (98-107); CREATININE 1.5 mg/dL (0.6-1.3); GLUCOSE 135 mg/dL (74-106); MAGNESIUM 2.2 mg/dL (1.8-2.4); PHOSPHORUS 2.9 mg/dL (2.5-4.9); POTASSIUM 3.8 mmol/L (3.5-5.1); SODIUM SERUM 137 mmol/L (136-145); UREA NITROGEN, BLOOD 62 mg/dL (7-18)
--- NOTE | 2019-03-08 07:45 | NUR ---
MS RN Opening Notes Received patient asleep, resting in bed. Semi-Fowlers position, supine. Alert and oriented x3, able to make needs known. No complaints of shortness of breath or pain at this time. Respirations even and unlabored on 2 lpm oxygen via nasal cannula, no acute distress noted. Peripheral IV to the right forearm, intact, patent and saline locked. Updated patient on current plan of care and safety measures. Safety and fall precautions in place: bed in lowest and locked position, side rails up x2, bed alarm on, call light and personal possessions within reach. Room well lit, no clutter on floor. Reminded patient of safety measures, verbalized understanding. Will continue to monitor and intervene as needed.
[2019-03-08 08:00] VITALS: BP 122/67
[2019-03-08] MEDS: HEPARIN SODIUM, PORCINE 5000 UNITS/1 ML VIAL SQ SCH (08:48)
[2019-03-08] MEDS: PANTOPRAZOLE 40 MG TABLET.DR PO SCH (08:51)
[2019-03-08] MEDS: ASPIRIN 81 MG TAB.CHEW PO SCH (08:52)
[2019-03-08] MEDS: FUROSEMIDE 40 MG TABLET PO SCH (08:52)
[2019-03-08] MEDS: predniSONE 10 MG TABLET PO SCH (08:53)
[2019-03-08] MEDS ORDERED: PRED20TA PO (11:07)
[2019-03-08] MEDS ORDERED: PRED10TA PO (11:07)
[2019-03-08] MEDS ORDERED: PRED20TA GT (11:07)
[2019-03-08] MEDS ORDERED: LEVO500T2 PO (11:07)
[2019-03-08] MEDS ORDERED: ASPI-1169 PO (11:07)
[2019-03-08] MEDS ORDERED: FURO40TA5 PO ×2 (11:10→11:14)
[2019-03-08] MEDS ORDERED: POTA10CA43 PO (11:10)
[2019-03-08] MEDS ORDERED: LEVOFLOXACIN (750 MG) 750 MG TABLET PO SCH (12:00)
--- NOTE | 2019-03-08 12:00 | NUR ---
MS warp changer Notes Patient currently alert and oriented x3, able to make needs known. No complaints of shortness of breath or pain at this time. Respirations even and unlabored on room air, no acute distress noted. Peripheral IV to the right forearm removed with catheter tip intact. No redness, swelling or bleeding of the site noted. Ambulates independently with steady gait. Skin assessment completed, no issues noted. Personal belongings and valuables discharged with patient, verified with signature on form. Discharge instructions, Exitcare and prescription given to patient with present, all questions answered. Reviewed signs and symptoms of when to return for emergency care. Verbalized understanding and acknowledged via signature on form. ID band removed. Accom[facility] by staff member [facility], left via private car with spouse.
== END 2019-03-08 13:00 | disposition home or self-care (01) | DRG 280 ==
LOC: ER 12:14 → TELE 14:22 → MED 03-05 11:02
PROVIDERS: ADMIT Student in an Organized Health Care Education/Training Program; ATTEND Nurse Practitioner Acute Care
DX: I13.0 Hypertensive heart and chronic kidney disease with heart failure and stage 1 through stage 4 chronic kidney disease, or unspecified chronic kidney disease (principal); I50.33 Acute on chronic diastolic (congestive) heart failure; I21.A1 Myocardial infarction type 2; J44.1 Chronic obstructive pulmonary disease with (acute) exacerbation; N17.9 Acute kidney failure, unspecified; J44.0 Chronic obstructive pulmonary disease with (acute) lower respiratory infection; M19.90 Unspecified osteoarthritis, unspecified site; I25.10 Atherosclerotic heart disease of native coronary artery without angina pectoris; N40.0 Benign prostatic hyperplasia without lower urinary tract symptoms; F03.90 Unspecified dementia, unspecified severity, without behavioral disturbance, psychotic disturbance, mood disturbance, and anxiety; E78.5 Hyperlipidemia, unspecified; I27.20 Pulmonary hypertension, unspecified; Z95.1 Presence of aortocoronary bypass graft; K21.9 Gastro-esophageal reflux disease without esophagitis; E11.22 Type 2 diabetes mellitus with diabetic chronic kidney disease; N18.9 Chronic kidney disease, unspecified; K57.90 Diverticulosis of intestine, part unspecified, without perforation or abscess without bleeding; L40.9 Psoriasis, unspecified; F17.210 Nicotine dependence, cigarettes, uncomplicated; D69.6 Thrombocytopenia, unspecified; D53.9 Nutritional anemia, unspecified; D50.9 Iron deficiency anemia, unspecified; D63.8 Anemia in other chronic diseases classified elsewhere; I34.0 Nonrheumatic mitral (valve) insufficiency; J20.9 Acute bronchitis, unspecified
CPT/HCPCS: 31720; 36415; 70220-TC; 71045-TC; 80048-TC; 80053-TC; 80061-TC; 80076-TC; 82272-TC; 82728-TC; 82962-TC; 83540-TC; 83605-TC; 83735-TC; 83880; 84100-TC; 84439-TC; 84443-TC; 84484-TC; 85025-TC; 87040-TC; 87070-TC; 87081-TC; 93307-TC; 94799-TC; A4216; G0378; J0696; J1644; J1815; J1940; J1956; J2916; J2920; J2930; J7030

== ENCOUNTER 2019-04-04 10:41 | Outpatient (CLI) | payer MEDICARE, OTHER ==
[~2019-04-04 10:41] MED LIST changes: -ALBU2.5V38 IH; -AMLO5TAB4 PO; -AMOX500C2 PO; +ASPI-1169 PO; -AZIT250T PO; +CHOL200059 PO; +CYAN1TAB58 PO; +FLUT1BLS IH; +FURO40TA5 PO; -IPRA0.2S49 IH; +LEVO500T2 PO; +MEMA14CA PO; -MEMA7CAP PO; -METR-147 PO; +PRED10TA PO; +PRED20TA GT; +SACU1TAB4 PO; +UMEC62.5 IH
== END 2019-04-04 23:59 | disposition home or self-care (01) ==
LOC: CT 10:41
PROVIDERS: ATTEND Internal Medicine Pulmonary Disease
DX: J47.9 Bronchiectasis, uncomplicated (principal); K44.9 Diaphragmatic hernia without obstruction or gangrene; I70.0 Atherosclerosis of aorta; I25.10 Atherosclerotic heart disease of native coronary artery without angina pectoris; I51.7 Cardiomegaly; J98.11 Atelectasis
CPT/HCPCS: 71250-TC

== ENCOUNTER 2019-05-22 08:42 | Outpatient (CLI) | payer MEDICARE, OTHER | END 2019-05-22 23:59 | disposition home or self-care (01) | LOC: CARD 08:42 | PROVIDERS: ATTEND Internal Medicine Pulmonary Disease | DX: I82.812 Embolism and thrombosis of superficial veins of left lower extremity (principal) | CPT/HCPCS: 93970-TC ==

== ENCOUNTER 2020-01-25 11:09 | Inpatient (IN) | payer MEDICARE, OTHER ==
[~2020-01-25] VITALS: Ht 167.6 cm; Wt 73.0 kg
--- NOTE | 2020-01-25 11:13 | NUR ---
[id number] FRM HOME C/O DIFFICULTY BREATHING, COUGH X 2 DAYS. ATROVENT GIVEN SHORT HAUL DRIVER. TO ER BED 11, HOOKED TO MONITOR, CHANGED TO HOSP GOWN, WARM BLANKET PROVIDED. AOx4. DR MASTERS AT BEDSIDE
[2020-01-25] MEDS ORDERED: ALBUTEROL FS 2.5 MG/3 ML VIAL.NEB NEB ONE (11:30)
[2020-01-25] MEDS ORDERED: methylPREDNISolone SOD SUCC 125 MG/2ML VIAL IV ONE (11:30)
[2020-01-25] MEDS ORDERED: IPRATROPIUM NEB FS 0.5 MG/2.5 ML AMPUL.NEB NEB ONE (11:30)
[2020-01-25] MEDS ORDERED: methylPREDNISolone SOD SUCC 125 MG/2ML VIAL ONE (11:35)
[2020-01-25] MEDS ORDERED: IPRATROPIUM NEB FS 0.5 MG/2.5 ML AMPUL.NEB ONE (11:37)
[2020-01-25] MEDS ORDERED: ALBUTEROL FS 2.5 MG/3 ML VIAL.NEB ONE (11:37)
[2020-01-25 11:38] LABS: BASOPHILS % (AUTO) 0.1 % (0.0-2.0); EOSINOPHILS % (AUTO) 4.5 % (0.0-6.0); HEMATOCRIT 36 % (39-51); HEMOGLOBIN 12.1 g/dL (13.5-17.5); LYMPHOCYTES # (AUTO) 2.3 /CMM (0.8-4.8); MEAN CORPUSCULAR HGB CONC 34 g/dl (31.0-36.0); MEAN CORPUSCULAR VOLUME 101 fL (80-96); MONOCYTES # (AUTO) 0.6 /CMM (0.1-1.30); MONOCYTES % (AUTO) 8.3 % (2.0-12.0); NEUTROPHILS % (AUTO) 55.1 % (43.0-81.0); PLATELET COUNT (AUTO) 151 /CMM (150-450); WHITE BLOOD COUNT (AUTO) 7.3 K/uL (4.3-11.0)
[2020-01-25 11:45] LABS: CALCIUM, SERUM 8.7 mg/dL (8.5-10.1); CARBON DIOXIDE 22 mmol/L (21-32); CHLORIDE 111 mmol/L (98-107); CREATININE 1.7 mg/dL (0.6-1.3); GLUCOSE 143 mg/dL (74-106); POTASSIUM 4.5 mmol/L (3.5-5.1); SODIUM SERUM 143 mmol/L (136-145); UREA NITROGEN, BLOOD 40 mg/dL (7-18)
[2020-01-25] MEDS ORDERED: DIPH1TAB28 PO (11:52)
[2020-01-25] MEDS ORDERED: LINA145C PO (11:52)
[2020-01-25] MEDS ORDERED: LINA5TAB PO (11:52)
[2020-01-25] MEDS ORDERED: FURO-145 PO (11:52)
--- NOTE | 2020-01-25 11:52 | NUR ---
ONGOING BREATHING TREATMENT
[2020-01-25] MEDS ORDERED: FLUT1BLS6 INH (11:57)
[2020-01-25] MEDS ORDERED: ALBU18HF2 INH (11:57)
[2020-01-25 11:58] LABS: B-TYPE NATRIURETIC PEPTIDE 4404 PG/ML (0-125)
[2020-01-25] MEDS ORDERED: ASPIRIN 325 MG TABLET PO ONE (13:00)
--- NOTE | 2020-01-25 13:00 | NUR ---
PAGED [facility].
[2020-01-25] MEDS ORDERED: ASPIRIN 81 MG TAB.CHEW ONE (13:06)
--- NOTE | 2020-01-25 13:08 | NUR ---
CALLED NURSING SUP FOR TELE BED.
--- NOTE | 2020-01-25 13:21 | NUR ---
NURSING SUP GAVE TELE BED 320-2.
--- NOTE | 2020-01-25 13:30 | NUR ---
MS/RN NOTES ADMITTED A MALE 79 Y/O PATIENT CAME FROM ER. PATIENT ADMITTING DIAGNOSIS CHF AND SOB. PATIENT IN TELE MONITOR SINUS RHYTHM OF 98. ALERT AND ORIENTED X3. NO NO KNOWN ALLERGY NOTED. NASAL CANNULA IN PLACE AT 2L/MIN. PATIENT NO SOB NOTED. DENIES PAIN AT THIS TIME. WILL CONTINUE TO MONITOR.
--- NOTE | 2020-01-25 13:33 | NUR ---
REPORT GIVEN TO ABRIL BLUE. AWAITING TRANSFER TO FLOOR.
[2020-01-25 14:30] VITALS: BP 116/82
[2020-01-25] MEDS ORDERED: ONDANSETRON HCL/PF 4 MG/2 ML VIAL IVP PRN (14:30)
[2020-01-25] MEDS ORDERED: MAGNESIUM HYDROXIDE 30 ML UDC PO PRN (14:30)
[2020-01-25] MEDS ORDERED: HYDROCODONE/APAP 5/325MG 1 EACH TABLET PO PRN (14:30)
[2020-01-25] MEDS ORDERED: MAG HYDROX/AL HYDROX/SIMETH 30 ML UDC PO PRN (14:30)
[2020-01-25] MEDS ORDERED: ZOLPIDEM TARTRATE 5 MG TABLET PO PRN (14:30)
[2020-01-25] MEDS ORDERED: ACETAMINOPHEN 325 MG TABLET PO PRN (14:30)
[2020-01-25] MEDS ORDERED: Z GUARD REMEDY 2 OZ OINT TP PRN (14:30)
[2020-01-25 15:58] VITALS: BP 116/69
[2020-01-25] MEDS: FUROSEMIDE 40 MG/4 ML VIAL IV SCH (16:11)
[2020-01-25] MEDS: IPRATROPIUM NEB FS 0.5 MG/2.5 ML AMPUL.NEB NEB SCH ×3 (16:29→22:45)
[2020-01-25] MEDS: ALBUTEROL FS 2.5 MG/0.5 ML VIAL.NEB NEB SCH ×3 (16:29→22:45)
[2020-01-25] MEDS: methylPREDNISolone SOD SUCC 40 MG/ML VIAL IV SCH (16:30)
[2020-01-25] MEDS: ENOXAPARIN SODIUM 30 MG/0.3 ML DISP.SYRIN SQ SCH (18:18)
--- NOTE | 2020-01-25 18:51 | NUR ---
MS/RN CLOSING NOTES PATIENT IS ON BED RESTING COMFORTABLY. ALERT AND ORIENTED X2. PATIENT DENIES PAIN AT THIS TIME. IN ROOM AIR AND SATURATION AT 97%. PATIENT IN NO ACUTE DISTRESS. NO SOB NOTED. PATIENT BREATHING IS EVEN AND UNLABORED. KEPT PATIENT CLEAN AND DRY THE WHOLE SHIFT. SEEN AND EXAMINED BY MD WITH ORDERS MADE AND CARRIED OUT. ALL DUE MEDS WAS ADMINISTERED. PATIENT TURNED AND REPOSITION EVERY 2 HOURS. PATIENT HOB IS ELEVATED. PATIENT BED IS LOCKED AND IN LOWEST POSITION. CALL LIGHT WITHIN REACH. WILL ENDORSED TO ONION FARMER FOR FRED.
[2020-01-25 20:00] VITALS: BP 121/60
--- NOTE | 2020-01-25 20:43 | NUR ---
learning support aide: received report from jamaal monge at 1920. met with pt at bed side, pt is a/o x3 on 2l oxygen via nc respirations even and unlabored, pt denies any chest pain or shortness of breath at this time. iv access patent and flushing well, on hl. pt understand basic german, able to make his needs known. discussed plan of care to pt. pt on tele monitoring sinus tachy hr 101. pt continent, ambulates to bathroom with assistance. pt requested for vanilla pudding, provided with 2 containers/pack of pudding. vs taken by rn. safety precautions for fall initiated, call light in reach, will continue monitoring pt.
--- NOTE | 2020-01-25 23:52 | NUR ---
rn notes: contacted hospitalist secondary connector armature/dr shelton, relayed result of troponin 0.266, pt denies any chest pain or sob, denies any head ache or light headedness, pt currently ready his books, vs stable 126/76 hr 105, temp 97.9 rr 20 spo2 99%, on tele monitoring sinus tachy with bbb hr 105. informed md that dr yoselin lund/cardio on case, with echo done showing ef 40% and mildly dilated left ventricle with reduced systolic function. informed pt on lovenox. no new orders received, per md will follow up in am.
[2020-01-25 23:55] VITALS: BP 126/76
[2020-01-26] MEDS: IPRATROPIUM NEB FS 0.5 MG/2.5 ML AMPUL.NEB NEB SCH ×6 (03:51→22:39)
[2020-01-26] MEDS: ALBUTEROL FS 2.5 MG/0.5 ML VIAL.NEB NEB SCH ×6 (03:51→22:39)
[2020-01-26 04:00] VITALS: BP 104/61
--- NOTE | 2020-01-26 06:27 | NUR ---
prn milk of magnesia: pt requesting for medication, stated he hasnt move his bowels x4days, prn milk of magnesia administered at this time.
--- NOTE | 2020-01-26 06:42 | NUR ---
END OF SHIFT REPORT: PT DENIES ANY SOB THROUGHOUT THE SHIFT, REMAINS ON 2L OXYGEN RESPIRATIONS EVEN AND UNLABORED, DENIES ANY CHEST PAIN. ON SINUS RHYTHM HR 95. IV ACCESS REMAINS PATENT AND FLUSHING WELL, ON HL, NO S/S OF IV INFILTRATION NOTED. EF 40%. HAS ORDERS FOR AM LABS. VS REMAINS STABLE, NEEDS ATTENDED. SAFETY PRECAUTIONS FOR FALL REMAINS ENGAGED, CALL LIGHT IN REACH, WILL ENDORSE TO DAY RN FOR CONTINUITY OF CARE.
[2020-01-26 07:21] LABS: BASOPHILS % (AUTO) 0.1 % (0.0-2.0); HEMATOCRIT 34 % (39-51); HEMOGLOBIN 11.5 g/dL (13.5-17.5); LYMPHOCYTES # (AUTO) 0.4 /CMM (0.8-4.8); LYMPHOCYTES % (AUTO) 5.3 % (20.0-44.0); MEAN CORPUSCULAR HGB CONC 35 g/dl (31.0-36.0); MEAN CORPUSCULAR VOLUME 98 fL (80-96); MONOCYTES # (AUTO) 0.3 /CMM (0.1-1.30); MONOCYTES % (AUTO) 4.9 % (2.0-12.0); NEUTROPHILS # (AUTO) 6.3 /CMM (1.8-8.9); NEUTROPHILS % (AUTO) 89.7 % (43.0-81.0); PLATELET COUNT (AUTO) 155 /CMM (150-450)
[2020-01-26 07:58] LABS: ALANINE AMINOTRANSFERASE 25 U/L (12-78); ALBUMIN 3.5 g/dL (3.4-5.0); ALKALINE PHOSPHATASE 51 U/L (46-116); ASPARTATE AMINOTRANSFERASE 17 U/L (15-37); BILIRUBIN,TOTAL 0.3 mg/dL (0.2-1.0); CALCIUM, SERUM 8.5 mg/dL (8.5-10.1); CARBON DIOXIDE 16 mmol/L (21-32); CHLORIDE 108 mmol/L (98-107); GLUCOSE 332 mg/dL (74-106); MAGNESIUM 1.9 mg/dL (1.8-2.4); PHOSPHORUS 3.1 mg/dL (2.5-4.9); POTASSIUM 4.5 mmol/L (3.5-5.1); SODIUM SERUM 139 mmol/L (136-145); TOTAL PROTEIN, SERUM 6.8 g/dL (6.4-8.2); UREA NITROGEN, BLOOD 45 mg/dL (7-18)
[2020-01-26 08:00] VITALS: BP 127/76
--- NOTE | 2020-01-26 08:00 | NUR ---
RN NOTES RECEIVE PATIENT IN THE ROOM A/O X3/4 CITIZEN OF [place] SPEAKER. PATIENT TELE SR-88, NO ACUTE RESPIRATORY DISTRESS. PATIENT ON O2-2L NC, ADMINISTERED SCHEDULED MEDICATION, V/S STABLE. IV ACCESS ON RIGHT AC INTACT. SEEN PATIENT BY HOSPITALIST, PLAN TO DISCHARGE HOME TOMORROW, CALL LIGHT WITHIN TO REACH. PATIENT AMBULATORY SELF CARE, REFUSED PAIN. SAFETY PRECAUTION MAINTAINED ALL THE TIME.
[2020-01-26 08:08] LABS: CHOLESTEROL 131 mg/dL (<200); HDL CHOLESTEROL 42 mg/dL (40-60); LDL 87 mg/dL (0-99); TRIGLYCERIDES 44 mg/dL (30-150)
[2020-01-26] MEDS: methylPREDNISolone SOD SUCC 40 MG/ML VIAL IV SCH ×3 (09:14→17:42)
[2020-01-26] MEDS: FUROSEMIDE 40 MG/4 ML VIAL IV SCH (09:14)
--- NOTE | 2020-01-26 10:00 | NUR ---
RN NOTES INFUSING ROCEPHIN 100 ML/HR INTACT, INTERMISSION COORDINATOR NEXT TO THE BED.
[2020-01-26] MEDS: CEFTRIAXONE 1 G in IV D5W 50 ML IV SCH (11:06)
[2020-01-26] MEDS: AZITHROMYCIN 500 MG in IV D5W 250 ML IV SCH (11:19)
[2020-01-26 12:00] VITALS: BP 116/67
[2020-01-26] MEDS: CLOPIDOGREL BISULFATE 75 MG TABLET PO SCH (12:25)
--- NOTE | 2020-01-26 15:00 | NUR ---
RN NOTES PATIENT RESTING IN THE BED, REFUSED PAIN,V/S STABLE. CONTINUED MONITORING.
[2020-01-26 16:00] VITALS: BP 110/70
[2020-01-26] MEDS: ENOXAPARIN SODIUM 30 MG/0.3 ML DISP.SYRIN SQ SCH (18:12)
--- NOTE | 2020-01-26 18:30 | NUR ---
RN NOTES PATIENT STABLE NO ACUTE RESPIRATORY DISTRESS, V/S STABLE. PATIENT AMBULATORY SELF CARE. ADMINISTERED SCHEDULED MEDICATION. IV ACCESS ON LEFT FA INTACT. MEDICATION WERE ADMINISTERED FOR CONSTIPATION EFFECTIVE. ENDORSED ONCOMING NURSE FOLLOW PLAN OF CARE.
--- NOTE | 2020-01-26 19:59 | NUR ---
NOTE TAKER: RECEIVED REPORT FROM DON BLUE. PT IN BED, ON RA RESPIRATIONS EVEN AND UNLABORED, DENIES ANY CHEST PAIN OR SHORTNESS OR BREATH. PT VERY HAPPY WITH THE CARE HE RECEIVED, EXCITED TO GO HOME TOMORROW. IV ACCES PATENT AND FLUSHING WELL, ON HL. DISCUSSED PLAN OF CARE. PATEL LEACH AT BED SIDE CHECKING PT'S VITAL SIGN. SAFETY PRECAUTIONS FOR FALL INITIATED, CALL LIGHT IN REACH, WILL CONTINUE MONITORING PT.
[2020-01-26 20:00] VITALS: BP 132/71
[2020-01-26 20:06] VITALS: BP 132/71
[2020-01-26] MEDS: ATORVASTATIN 40 MG TABLET PO SCH (21:03)
[2020-01-27] VITALS (7 sets, daily range): BP systolic 104–145; BP diastolic 56–84
--- NOTE | 2020-01-27 01:35 | NUR ---
RN NOTES: PT CALLED C/O CHEST PAIN RADIATING TO LEFT ARM, 01/06, VS TAKENA ND RECORDED, PT ON TELE MONITORING SINUS TACHYCARDIA WITH BBB HR 101. PER PT HE WAS CURRENTLY READING WITH HIS IPAD WHEN HE HAD THE CHEST PAIN. PLACED PT ON 2L OXYGEN. ICE PLATFORM SUPERVISOR MADE AWARE, STAT EKG ORDERED.
--- NOTE | 2020-01-27 01:40 | NUR ---
RN NOTES: CONTACTED RT SPOKE WITH RIKKI RE:STAT EKG
--- NOTE | 2020-01-27 01:52 | NUR ---
RN NOTES: RT AT BED SIDE DOING EKG
--- NOTE | 2020-01-27 01:55 | NUR ---
RN NOTES: EKG RSULT IS SINUS RHYTHM WITH SHORT [place], RIGHT BBB, PLUS RIGHT VENTRICULAR ENLARGEMENT HR 98. PER FRUIT SHIPPER NEISHA SHE SPOKE WITH LABS TO HAVE ALL BLOOD WORK DONE NOW INCLUDING ORDERED TROPONIN
--- NOTE | 2020-01-27 02:17 | NUR ---
RN NOTES: 0155-CALLED FOR VIETNAMESE PERFORMANCE TEST ARCHITECT. ACCORDING TO THE CONVERSATION, PT CLAIMED HE HAS SUDDEN EPISODE OF CHEST PAIN RADIATING TO LEFT SHOULDER AND LEFT ARM 01/06, HE DESCRIBED THIS BURNING SENSATION DURATION FOR 3-5MINS. HE ADDED THAT THE LAST TIME HE EXPERIENCED THIS FEELING WAS 1990, BEFORE HE HAD OPEN HEART SX. OF THE MOMENT, PT STATED HE HAS NO MORE CHEST PAIN, AND HE FELT OKAY NOW. THE ONLY THING HE'S REQUESTING IS TO HAVE XANAX TO MAKE HIM RELAX, BUT IF THERE IS BELSOMRA AVAILABLE ITS BETTER FOR HIS INSOMNIA. LAB/CRIMINAL INTELLIGENCE SPECIALIST CAME TO DRAW AM LABS. Addendum: 01/27/20 at 0222 by CORI SELLERS RN ALL COMMUNICATION TRANSLATED IN VIETNAMESE LANGUAGE, PAPER HANGER AND ASSIGNED CERAMIC ENGINEERING PROFESSOR PRESENT AT BED SIDE WITH VIETNAMESE PERFORMANCE TEST ARCHITECT. CONVERSATION LASTED FOR 15MINS
--- NOTE | 2020-01-27 02:26 | NUR ---
RN NOTES: PAGED BAGGAGE CHECKER HOSPITALIST, SPOKED WITH EXCHANGE, AWAITING FOR CALL BACK.
--- NOTE | 2020-01-27 02:33 | NUR ---
RN NOTES: SPOKED WITH HOSPITALIST LOCOMOTIVE OILER/DR NEGRON, RELAYED TO MD ABOUT THE CHEST PAIN INCIDENT, LATEST VS, RESULT OF EKG, AND PT'S REQUEST FOR XANAX OR BELSOMRA, PER MD WE DONT CARRY BELSOMRA. INFORMED MD PT DOESNT WANT AMBIEN DUE TO ITS SIDE EFFECT AND STATED SOMEONE FROM TAKING AMBIEN. PER MD, TO INFORM PT THAT XANAX WONT HELP HIM SLEEP, , TELEPHONE ORDER RECEIVED TO GIVE RESTORIL 7.5 MG CAP X 1 DOSE TO HELP WITH SLEEP. ORDER READ BACK VERIFIED AND CARRIED OUT.
[2020-01-27] MEDS: ALBUTEROL FS 2.5 MG/0.5 ML VIAL.NEB NEB SCH ×5 (02:35→20:33)
[2020-01-27] MEDS: IPRATROPIUM NEB FS 0.5 MG/2.5 ML AMPUL.NEB NEB SCH ×5 (02:35→20:33)
--- NOTE | 2020-01-27 02:46 | NUR ---
restoril x 1 dose: prn restoril administered for sleep, x 1 dose per pt request.
[2020-01-27 02:48] LABS: CALCIUM, SERUM 8.6 mg/dL (8.5-10.1); CARBON DIOXIDE 20 mmol/L (21-32); CHLORIDE 104 mmol/L (98-107); CREATININE 2.2 mg/dL (0.6-1.3); POTASSIUM 5.6 mmol/L (3.5-5.1); SODIUM SERUM 137 mmol/L (136-145); UREA NITROGEN, BLOOD 52 mg/dL (7-18)
[2020-01-27 03:00] LABS: GLUCOSE 556 mg/dL (74-106)
[2020-01-27] MEDS ORDERED: TEMAZEPAM 7.5 MG CAPSULE PO ONE (03:00)
--- NOTE | 2020-01-27 03:01 | NUR ---
critical result-glucose,trop: received critical result reported by quoc vera. glucose 556, and troponin 0.558. result read back and verified. contacted epic md sonoscope operator, spoked with exchange, awaiting for md to call back.
[2020-01-27] MEDS ORDERED: DEXTROSE 50%-WATER 50 ML DISP.SYRIN IV PRN (04:00)
--- NOTE | 2020-01-27 04:00 | NUR ---
rn notes: received call back from dr shelton relayed critical lab result glucose 556, trop 0.558 k 5.6. per md regarding trop-cardio on board, will follow up in am. per glucose, start using moderate insulin sliding scale, give corresponding dose now. orders read back verified and carried out. rn progressive care made aware.
--- NOTE | 2020-01-27 04:24 | NUR ---
rn notes: fingerstick blood glucose check 420, made aware, okay to give 15units of insulin moderate sliding scale now.
[2020-01-27] MEDS: BLOOD SUGAR DIAGNOSTIC 1 EACH STRIP VI SCH ×5 (04:35→22:28)
[2020-01-27] MEDS: INSULIN REGULAR, HUMAN 100 UNIT/ML 3 ML VIAL SQ PRN ×4 (04:37→17:38)
--- NOTE | 2020-01-27 04:38 | NUR ---
ACCU CHECK: 15UNITS OF INSULIN GIVEN PER SLIDING SCALE USING MODERATE SCALE AC PER MD ORDER, FINGERSTICK BLOOD GLUCOSE IS 420. PT ON IV STEROID AND CARDIAC DIET.
--- NOTE | 2020-01-27 06:36 | NUR ---
end of shift report: pt denies any sob, tolerated on 2l oxygen spo2 ranging 95-98%. iv access remains patent and flushing well, on hl, no s/s of iv infiltration noted. all due meds administered last night. still with sore throat and cough. remains on sinus rhythm with 1st degree avblock and bbb hr 86. safety precautions for fall remains engaged, call light in reach, will endorse to day rn for continuity of care.
--- NOTE | 2020-01-27 08:00 | NUR ---
BOX OFFICE MANAGER OPENING NOTES RECEIVED REPORT FROM PM NURSE. PATIENT APPEARS TO BE COMFORTABLE, LAYING IN BED WITH NO SOB/ RESPIRATORY DISTRESS NOTED. BED IN LOWEST LOCKED POSITION WITH SIDE RAILS UP X2. A/O X4, VATICAN CITIZEN SPEAKING. CALL LIGHT WITHIN REACH. WILL CONTINUE TO MONITOR.
[2020-01-27] MEDS: predniSONE 20 MG TABLET PO SCH (08:29)
[2020-01-27] MEDS: LINAGLIPTIN 5 MG TABLET PO SCH (08:29)
[2020-01-27] MEDS: CHOLECALCIFEROL 1,000 UNIT TABLET (VIT D3) PO SCH (08:29)
[2020-01-27] MEDS: CLOPIDOGREL BISULFATE 75 MG TABLET PO SCH (08:29)
[2020-01-27] MEDS: CEFTRIAXONE 1 G in IV D5W 50 ML IV SCH (08:29)
[2020-01-27] MEDS ORDERED: Medication Not On Formulary EA (Nebivolol Hcl (Bystolic) 5 MG) PO SCH (09:00)
[2020-01-27] MEDS ORDERED: Medication Not On Formulary EA (Linaclotide (Linzess) 145 MCG) PO SCH (09:00)
[2020-01-27] MEDS ORDERED: CLOPIDOGREL BISULFATE 75 MG TABLET PO SCH (09:00)
[2020-01-27] MEDS: METOPROLOL TARTRATE 25 MG TABLET PO SCH ×2 (09:23→22:34)
[2020-01-27] MEDS: PANTOPRAZOLE 40 MG TABLET.DR PO SCH (09:23)
[2020-01-27] MEDS: AZITHROMYCIN 500 MG in IV D5W 250 ML IV SCH (09:42)
--- NOTE | 2020-01-27 10:00 | NUR ---
PRODUCT DEMONSTRATOR NOTES CALL RECEIVED FROM LAB REPORTING CRITICAL RESULTS. TROP. 1.520. PATIENT DENIES ANY CHEST PAIN. DR. REYES PAGED WAITING FOR CALL BACK. WILL CONTINUE TO MONITOR.
--- NOTE | 2020-01-27 10:15 | NUR ---
NIPPLE THREADER NOTES RECEIVED CALL BACK FROM DR. REYES WITH ORDERS FOR SERIAL TROP. EVERY 6 HOURS. EKG AND NPO AFTER MIDNIGHT EXCEPT MEDS. STATES HE WILL SEE PATIENT LATER TODAY. WILL CONTINUE TO MONITOR.
--- NOTE | 2020-01-27 15:21 | NUR ---
APPLIQUER NOTES CALL RECEIVED FROM LAB WITH HUGO. RESULTS OF 2.089. RESULTS REPORTED TO DR. BUCHANAN ORDERS TO CONTINUE TO MONITOR. HE WILL ASSESS PATIENT SOON. NOTED AND CARRIED OUT.
[2020-01-27] MEDS ORDERED: HEPARIN INFUSION/D5W 500 ML IV PRN (16:30)
--- NOTE | 2020-01-27 16:45 | NUR ---
WIRE COILER MACHINE OPERATOR NOTES PATIENT SEEN AND EVALUATED BY DR. BUCHANAN ORDERS TO START PATIENT ON ACUTE CORONARY HEPARIN FOR NV AND TO HOLD BOLUS OF THE HEPARIN. PATIENT WEIGHED NOTED TO BE 161 LBS. PER BED SCALE. FORM FILLED OUT SEND TO PHARMACY FOR VERIFICATION.
[2020-01-27] MEDS: ASPIRIN EC 81 MG TABLET.DR PO SCH (17:37)
[2020-01-27] MEDS: TAMSULOSIN 0.4 MG CAP.SR.24H PO SCH (17:37)
--- NOTE | 2020-01-27 19:00 | NUR ---
HAIR ASSISTANT CLOSING NOTES PT LAYING IN BED, CALL LIGHT WITHIN REACH. BED LOCKED IN LOWEST POSITION, SIDE RAILS UP X2. NO SOB NOTED, RESPONSIVE, A/O X4. RECEIVING 2L OXYGEN NASAL CANULA. CURRENTLY ON HEPARIN DRIP, PATIENT APPEARS COMFORTABLE. BP 114/75, HR 82. IV ON L FOREARM 22 GAUGE PATENT AND FLUSHABLE. WILL GIVE REPORT TO PM NURSE.
--- NOTE | 2020-01-27 19:47 | NUR ---
CERTIFIED CORPORATE TRAVEL EXECUTIVE PM OPENING NOTES BEDSIDE REPORT RECIEVED FROM JAIME BLUE. PT IN BED, CALL LIGHT WITHIN REACH HE IS SPEAKING ON THE PHONE. BED LOCKED IN LOWEST POSITION, SIDE RAILS UP X2. NO APPARENT SOB NOTED, RESPONSIVE, A/O X4 PRIMARILY SLOVAK SPEAKIN. RECEIVING 2L OXYGEN NASAL CANULA. CURRENTLY ON HEPARIN DRIP AT 1100 MCG PER HOUR. PATIENT APPEARS COMFORTABLE. IV ON L FOREARM 22 GAUGE PATENT WITH NO SIGNS OF LEAKING OR BLEEDING. PTT TO BE ORDERED PER PROTOCOL FOR FOLLOWUP ON HEPARIN DRIP.
[2020-01-27] MEDS ORDERED: ATORVASTATIN 40 MG TABLET PO SCH (22:00)
[2020-01-27] MEDS: *INSULIN REGULAR(HUMULIN R)HUM 100 UNIT/ML VIAL SQ PRN (22:33)
[2020-01-27] MEDS: ATORVASTATIN 40 MG TABLET PO SCH (22:34)
--- NOTE | 2020-01-27 22:52 | NUR ---
midline ordered and inserted. labs drawn for ptt
[2020-01-28] MEDS ORDERED: HEPARIN INFUSION/D5W 500 ML IV PRN
[2020-01-28 00:01] VITALS: BP 112/66
[2020-01-28] MEDS: IPRATROPIUM NEB FS 0.5 MG/2.5 ML AMPUL.NEB NEB SCH ×7 (00:01→22:54)
[2020-01-28] MEDS: ALBUTEROL FS 2.5 MG/0.5 ML VIAL.NEB NEB SCH ×7 (00:01→22:54)
--- NOTE | 2020-01-28 02:30 | NUR ---
analytical lab analyst came to draw random trop level. random trop ordered with no specific time after discussing with analytical lab analyst decided there was no need to check now. trop ordered to be checked this am. trop lab cancelled.
[2020-01-28 04:00] VITALS: BP 109/72
--- NOTE | 2020-01-28 05:57 | NUR ---
ASSEMBLER HANDBAGS PM CLOSING NOTES PT IN BED EASILY AROUSABLE TO VOICE, CALL LIGHT WITHIN REACH BED LOCKED IN LOWEST POSITION, SIDE RAILS UP X2. NO APPARENT SOB NOTED, RESPONSIVE, A/O X4 PRIMARILY ZAMBIAN SPEAKIN. ON HEPARIN DRIP RUNING AT 1250 UNITS PER HOUR. APTT DRAWN WITH ADDRESSING MACHINE OPERATOR AT THE BEDSIDE WILL AWAIT RESULTS. NO ACITVE SIGNS OF BLEEDING OBSERVED. PATIENT APPEARS COMFORTABLE. IV ON L FOREARM 22 GAUGE PATENT WITH NO SIGNS OF LEAKING OR BLEEDING.
[2020-01-28] MEDS: *INSULIN REGULAR(HUMULIN R)HUM 100 UNIT/ML VIAL SQ PRN ×2 (06:24→21:41)
[2020-01-28] MEDS: BLOOD SUGAR DIAGNOSTIC 1 EACH STRIP VI SCH ×4 (06:25→21:44)
[2020-01-28] MEDS: PANTOPRAZOLE 40 MG TABLET.DR PO SCH (06:27)
[2020-01-28 06:31] LABS: BASOPHILS % (AUTO) 0.1 % (0.0-2.0); EOSINOPHILS % (AUTO) 0.1 % (0.0-6.0); HEMATOCRIT 37 % (39-51); HEMOGLOBIN 12.3 g/dL (13.5-17.5); LYMPHOCYTES % (AUTO) 9.2 % (20.0-44.0); MEAN CORPUSCULAR HGB CONC 34 g/dl (31.0-36.0); MEAN CORPUSCULAR VOLUME 100 fL (80-96); MONOCYTES # (AUTO) 0.9 /CMM (0.1-1.30); MONOCYTES % (AUTO) 8.6 % (2.0-12.0); NEUTROPHILS # (AUTO) 8.7 /CMM (1.8-8.9); PLATELET COUNT (AUTO) 152 /CMM (150-450); RED BLOOD CELL COUNT(AUTO) 3.68 MIL/uL (4.5-6.0); WHITE BLOOD COUNT (AUTO) 10.6 K/uL (4.3-11.0)
[2020-01-28 06:53] LABS: CREATINE KINASE, TOTAL 219 U/L (39-308)
[2020-01-28 06:54] LABS: ALANINE AMINOTRANSFERASE 29 U/L (12-78); ALBUMIN 3.3 g/dL (3.4-5.0); ALKALINE PHOSPHATASE 47 U/L (46-116); ASPARTATE AMINOTRANSFERASE 21 U/L (15-37); BILIRUBIN,TOTAL 0.3 mg/dL (0.2-1.0); CALCIUM, SERUM 8.4 mg/dL (8.5-10.1); CARBON DIOXIDE 22 mmol/L (21-32); CHLORIDE 108 mmol/L (98-107); CREATININE 1.7 mg/dL (0.6-1.3); GLUCOSE 141 mg/dL (74-106); MAGNESIUM 2.1 mg/dL (1.8-2.4); PHOSPHORUS 3.3 mg/dL (2.5-4.9); POTASSIUM 4.9 mmol/L (3.5-5.1); SODIUM SERUM 141 mmol/L (136-145); TOTAL PROTEIN, SERUM 6.5 g/dL (6.4-8.2); UREA NITROGEN, BLOOD 54 mg/dL (7-18)
[2020-01-28 08:00] VITALS: BP 112/63
--- NOTE | 2020-01-28 08:00 | NUR ---
RN NOTES RECEIVED PATIENT IN THE ROOM A/O X3/4NO ACUTE RESPIRATORY DISTRESS, ON O2-2L NC. PATIENT REFUSED PAIN, V/S STABLE INFUSING. HEPARIN 1250 U/HR INTACT ON LEFT UA. ADMINISTERED SCHEDULED MEDICATION. PATIENT USING URINAL AND BRP.
--- NOTE | 2020-01-28 08:00 | NUR ---
RN NOTES RECEIVED CALL FROM LAB TROPONIN LEVEL 1.443 AT THIS TIME. MD AWARE OF, NO NEW ORDER..
[2020-01-28] MEDS: ASPIRIN EC 81 MG TABLET.DR PO SCH (08:52)
[2020-01-28] MEDS: CHOLECALCIFEROL 1,000 UNIT TABLET (VIT D3) PO SCH (08:52)
[2020-01-28] MEDS: CLOPIDOGREL BISULFATE 75 MG TABLET PO SCH (08:53)
[2020-01-28] MEDS: LINAGLIPTIN 5 MG TABLET PO SCH (08:53)
[2020-01-28] MEDS: predniSONE 20 MG TABLET PO SCH (08:53)
[2020-01-28] MEDS: METOPROLOL TARTRATE 25 MG TABLET PO SCH ×2 (08:53→21:43)
[2020-01-28] MEDS: CEFTRIAXONE 1 G in IV D5W 50 ML IV SCH (08:56)
[2020-01-28] MEDS: AZITHROMYCIN 500 MG in IV D5W 250 ML IV SCH (10:16)
[2020-01-28] MEDS: MENTHOL/CETYLPYRD (CEPACOL) 1 LOZ LOZENGE PO PRN ×2 (10:22→17:53)
[2020-01-28 12:00] VITALS: BP 86/53
[2020-01-28] MEDS: INSULIN REGULAR, HUMAN 100 UNIT/ML 3 ML VIAL SQ PRN ×2 (12:11→17:58)
--- NOTE | 2020-01-28 12:12 | NUR ---
RN NOTES BS-273 MG/DL COVERAGE GIVEN, INFUSING HEPARIN 1250U AT THIS TIME. TROPONIN LEVEL 1.333 GOING DOWN, NO NEW ORDER, CONTINUED HEPARIN INFUSION PER HOSPITAL PROTOCOL PTT 52.5 REPEAT Q 24 HR 12/31/19 0600AM. CALL LIGHT WITHIN TO REACH. TRAUMA THERAPIST NEXT TO THE BED. CONTINUED MONITORING.
--- NOTE | 2020-01-28 15:06 | NUR ---
RN NOTES STARTED NEW BAG HEPARIN INFUSION PTT 52.5 1250 U /HR ON LEFT UA MIDLINE INTACT. PATIENT HAS NO ANY S/S OF BLEEDING. V/S STABLE. CALL LIGHT WITHIN TO REACH. CONTINUED MONITORING.
[2020-01-28 16:00] VITALS: BP 102/68
[2020-01-28] MEDS: TAMSULOSIN 0.4 MG CAP.SR.24H PO SCH (17:53)
[2020-01-28] MEDS: RANEXA 500 MG PO SCH (17:54)
--- NOTE | 2020-01-28 18:00 | NUR ---
rn notes [id number] MG/DL COVERAGE GIVEN, ALSO ADMINISTERED SCHEDULED MEDICATION, GET LABS RESULT OF T-0.906, INFUSING HEPARIN 1250 U ON LEFT UA INTACT. ADMINISTERED LOZENGE FOR SORE THROAT. PATIENT REFUSED PAIN. CALL LIGHT WITHIN TO REACH. ENDORSED ONCOMING NURSE FOLLOW PLAN OF CARE.
--- NOTE | 2020-01-28 19:20 | NUR ---
RN PM OPENING NOTES. BEDSIDE REPORT RECIEVED FROM [facility]. PT IN BED IN NO APPARENT DISTRESS. HEPARIN DRIP INFUSING TO LEFT WRIST 22 GAUGE WITH NO S/S OF INFILTRATION. PATIENT HAS NO S/S OF BLEEDING. HEP DRIP RUNNING AT 1250 UNITS PER HOUR. LAB TO BE REDRAWN TOMORROW AM. PATIENT DENIES. PAIN. POC REVIEWED QUESTIONS CONCERNS ADDRESSED. BED DOWN LOCKED SRX2 VERBALIZED UNDERSTANDING TO CALL FOR ASSISTANCE IF NEEDED.
[2020-01-28 20:00] VITALS: BP 112/64
[2020-01-28] MEDS: ATORVASTATIN 40 MG TABLET PO SCH (21:43)
[2020-01-29] VITALS: BP 101/20
[2020-01-29] MEDS: ALBUTEROL FS 2.5 MG/0.5 ML VIAL.NEB NEB SCH ×3 (03:30→10:56)
[2020-01-29] MEDS: IPRATROPIUM NEB FS 0.5 MG/2.5 ML AMPUL.NEB NEB SCH ×3 (03:30→10:56)
[2020-01-29] MEDS: PANTOPRAZOLE 40 MG TABLET.DR PO SCH (06:16)
[2020-01-29] MEDS: MENTHOL/CETYLPYRD (CEPACOL) 1 LOZ LOZENGE PO PRN (06:19)
[2020-01-29] MEDS: *INSULIN REGULAR(HUMULIN R)HUM 100 UNIT/ML VIAL SQ PRN (06:19)
[2020-01-29] MEDS: BLOOD SUGAR DIAGNOSTIC 1 EACH STRIP VI SCH ×2 (06:33→12:25)
[2020-01-29 07:11] VITALS: BP 101/58
--- NOTE | 2020-01-29 07:15 | NUR ---
SEE SUPERVISOR OPENING NOTES RECEIVED PT IN BED, AWAKE, A/O X4. PT IS [place], BUT CAN UNDERSTAND CITIZEN OF [place]. PT TOLERATING RA, WITH NO ACUTE RESPIRATORY DISTRESS NOTED. PT DENIES ANY PAIN OR DISCOMFORT AT THIS TIME. DURING ROUNDS, DR SOLORZANO AT BEDSIDE AND ORDERED TO STOP HEPARIN DRIP WHEN THIS MORNING TROPONIN LEVEL IS LOWER THAN THE PREVIOUS ONE AND START LOVENOX 40MG TONIGHT. PT ON TELEMONITORING SR70 WITH BBB; PT DENIES ANY CHEST PAIN. PIV TO KAVEH MIDLINE AND LFA G22, BOTH FLUSHED WITH NS, INTACT AND OPERATIONAL. PT KEPT COMFORTABLE IN BED. CALL LIGHT KEPT WITHIN REACH. PT'S BED IN LOWEST LOCKED POSITION WITH SR X3. WILL CONTINUE PLAN OF CARE.
[2020-01-29 07:25] LABS: BASOPHILS % (AUTO) 0.1 % (0.0-2.0); EOSINOPHILS % (AUTO) 0.2 % (0.0-6.0); HEMATOCRIT 37 % (39-51); HEMOGLOBIN 12.4 g/dL (13.5-17.5); LYMPHOCYTES # (AUTO) 1.3 /CMM (0.8-4.8); LYMPHOCYTES % (AUTO) 16.1 % (20.0-44.0); MEAN CORPUSCULAR HGB CONC 34 g/dl (31.0-36.0); MEAN CORPUSCULAR VOLUME 100 fL (80-96); MONOCYTES # (AUTO) 0.8 /CMM (0.1-1.30); MONOCYTES % (AUTO) 10.8 % (2.0-12.0); NEUTROPHILS # (AUTO) 5.7 /CMM (1.8-8.9); NEUTROPHILS % (AUTO) 72.8 % (43.0-81.0); PLATELET COUNT (AUTO) 155 /CMM (150-450); RED BLOOD CELL COUNT(AUTO) 3.69 MIL/uL (4.5-6.0); WHITE BLOOD COUNT (AUTO) 7.8 K/uL (4.3-11.0)
[2020-01-29 07:51] LABS: CALCIUM, SERUM 8.2 mg/dL (8.5-10.1); CARBON DIOXIDE 22 mmol/L (21-32); CHLORIDE 106 mmol/L (98-107); CREATININE 1.6 mg/dL (0.6-1.3); GLUCOSE 147 mg/dL (74-106); MAGNESIUM 2.2 mg/dL (1.8-2.4); PHOSPHORUS 3.3 mg/dL (2.5-4.9); POTASSIUM 4.2 mmol/L (3.5-5.1); SODIUM SERUM 140 mmol/L (136-145); UREA NITROGEN, BLOOD 49 mg/dL (7-18)
--- NOTE | 2020-01-29 07:58 | NUR ---
LEARNING CENTER COORDINATOR NOTES RECEIVED CALL FROM LAB/SP, TROPONIN OF [phone]. RN WAS ORDERED BY MD TO STOP HEPARIN AND START LOVENOX TONIGHT. WILL CONTINUE TO MONITOR.
[2020-01-29 08:00] VITALS: BP 101/63
[2020-01-29] MEDS: CEFTRIAXONE 1 G in IV D5W 50 ML IV SCH (08:26)
[2020-01-29] MEDS: CHOLECALCIFEROL 1,000 UNIT TABLET (VIT D3) PO SCH (08:27)
[2020-01-29] MEDS: LINAGLIPTIN 5 MG TABLET PO SCH (08:27)
[2020-01-29] MEDS: predniSONE 20 MG TABLET PO SCH (08:27)
[2020-01-29] MEDS: CLOPIDOGREL BISULFATE 75 MG TABLET PO SCH (08:27)
[2020-01-29] MEDS: RANEXA 500 MG PO SCH (08:27)
[2020-01-29] MEDS: ASPIRIN EC 81 MG TABLET.DR PO SCH (08:27)
[2020-01-29 08:28] VITALS: BP 104/63
[2020-01-29] MEDS: METOPROLOL TARTRATE 25 MG TABLET PO SCH (08:28)
[2020-01-29] MEDS ORDERED: AZITHROMYCIN 250 MG TABLET PO SCH (09:00)
[2020-01-29] MEDS ORDERED: PRED20TA PO (10:19)
[2020-01-29] MEDS ORDERED: METO25TA20 PO (10:19)
[2020-01-29] MEDS ORDERED: ASPI-1152 PO (10:19)
[2020-01-29] MEDS ORDERED: AZIT250T PO (10:19)
[2020-01-29 11:07] LABS: *SPE A/G RATIO 1.1 (0.7-1.7); *SPE ALBUMIN 3.2 g/dL (2.9-4.4); *SPE ALPHA-1-GLOBULIN 0.3 g/dL (0.0-0.4); *SPE BETA GLOBULIN 0.7 g/dL (0.7-1.3); *SPE GLOBULIN, TOTAL 2.8 g/dL (2.2-3.9); *SPE M-SPIKE 0.4 g/dL (Not Observed); *SPEGAMMA GLOBULIN 0.8 g/dL (0.4-1.8)
[2020-01-29] MEDS: INSULIN REGULAR, HUMAN 100 UNIT/ML 3 ML VIAL SQ PRN (12:40)
--- NOTE | 2020-01-29 13:51 | NUR ---
MEDICAL CLERICAL ASSISTANT NOTES PT GOING HOME, AWAKE, A/O X4.PT TOLERATING RA, WITH NO ACUTE RESPIRATORY DISTRESS NOTED. PT DENIES ANY PAIN OR DISCOMFORT AT THE TIME OF DISCHARGE. PIV TO KAVEH MIDLINE AND LFA G22, BOTH REMOVED AND APPLIED PRESSURE DRESSING. REVIEWED AND SIGNED DISCHARGE PAPERS AND INVENTORY LIST SIGNED BY PT. HOME MEDICINE RETURNED TO PT. ALL BELONGINGS WITH THE PT. ALL NEEDS AND CARE ATTENDED AND PROVIDED. PT ACCOMPANIED BY CAREGIVER. VS STABLE AND RECORDED. PT LEFT THE UNIT AT 1345. RN ESCORTED PT TO THE LOBBY, PT WAS AMBULATORY. HOSPITALIST/SK AND CN/NB AWARE OF DISCHARGE.
--- NOTE | 2020-01-29 13:56 | NUR ---
RN NOTES PT WAS DISCHARGE TO HOME. SKIN INTACT, NO PICTURES TAKEN AND FILED IN THE CHART.
[2020-01-29] MEDS ORDERED: ENOXAPARIN SODIUM 40 MG/0.4 ML DISP.SYRIN SQ SCH (17:00)
== END 2020-01-29 14:00 | disposition home or self-care (01) | DRG 190 ==
LOC: ER 11:10 → TELE 13:28 → MED 01-27 08:40 → TELE 01-27 08:40
PROVIDERS: ADMIT Internal Medicine; ATTEND Student in an Organized Health Care Education/Training Program
PROC: 05HA33Z Insertion of Infusion Device into Left Brachial Vein, Percutaneous Approach (ICD-10-PCS; principal; 2020-01-27)
DX: J44.1 Chronic obstructive pulmonary disease with (acute) exacerbation (principal); I21.4 Non-ST elevation (NSTEMI) myocardial infarction; I50.33 Acute on chronic diastolic (congestive) heart failure; J96.01 Acute respiratory failure with hypoxia; N17.0 Acute kidney failure with tubular necrosis; I13.0 Hypertensive heart and chronic kidney disease with heart failure and stage 1 through stage 4 chronic kidney disease, or unspecified chronic kidney disease; E11.22 Type 2 diabetes mellitus with diabetic chronic kidney disease; E11.65 Type 2 diabetes mellitus with hyperglycemia; I25.5 Ischemic cardiomyopathy; K57.90 Diverticulosis of intestine, part unspecified, without perforation or abscess without bleeding; F17.200 Nicotine dependence, unspecified, uncomplicated; F03.90 Unspecified dementia, unspecified severity, without behavioral disturbance, psychotic disturbance, mood disturbance, and anxiety; E87.5 Hyperkalemia; E78.5 Hyperlipidemia, unspecified; D63.8 Anemia in other chronic diseases classified elsewhere; I25.10 Atherosclerotic heart disease of native coronary artery without angina pectoris; I27.20 Pulmonary hypertension, unspecified; Z95.1 Presence of aortocoronary bypass graft; Z79.899 Other long term (current) drug therapy; Z79.82 Long term (current) use of aspirin; Z79.02 Long term (current) use of antithrombotics/antiplatelets; L40.9 Psoriasis, unspecified; Z79.51 Long term (current) use of inhaled steroids; N18.9 Chronic kidney disease, unspecified; N40.0 Benign prostatic hyperplasia without lower urinary tract symptoms; I34.0 Nonrheumatic mitral (valve) insufficiency; I45.10 Unspecified right bundle-branch block; Z79.84 Long term (current) use of oral hypoglycemic drugs; D50.9 Iron deficiency anemia, unspecified
CPT/HCPCS: 36415; 71045-TC; 76770-TC; 80048-TC; 80053-TC; 80061-TC; 82550-TC; 82962-TC; 83735-TC; 83880; 83970; 84100-TC; 84155; 84165; 84484-TC; 85025-TC; 85610-TC; 85730-TC; 87081-TC; 93307-TC; 94799-TC; G0378; J0456; J0696; J1644; J1650; J1815; J1940; J2920; J2930; J7050; J7060